=== PATIENT | female | born 1980 ===

== ENCOUNTER 2025-06-12 14:08 | Outpatient (AMB) | payer BC, SELFPAY ==
--- OUTSIDE RECORDS SUMMARY | 2024-09-17 03:30 | XMS_ITS ---
Author Organization [facility] Address [address] [address] Care Team Providers Care Bricklayer Name Role Phone SRIKANTH GILMORE Primary Care Provider REASON FOR VISIT CPE Medications Medication SIG (Take, Route, Frequency, Duration) Notes Start Date End Date Status Famotidine 20 MG 1 tablet Orally Twic e a day Active Vitamin D 25 MCG (1000 UT) 1 tablet and 5,000 unit Orally Once a day Active Vitamin A Active traZODone HCl 50 MG 1 tablet at bedtime as needed Orally Once a day Active Topiramate 25 MG 1 tablet Orally Once a day Active Vitamin E Active Magnesium 200 MG 1 tablet Orally Once a day Active Claritin Active Benzonatate 100 MG 1 capsule as needed Orally Three times a day; Duration: 21 days 05/09/2024 Active Albuterol Sulfate 108 (90 Base) MCG/ACT 1 puff as needed Inhalation every 4 hrs; Duration: 30 days 05/09/2024 Active Amoxicillin 500 MG 1 capsule Orally florentin ry 8 hrs; Duration: 7 days 04/27/2024 Not-Taki ng PARoxetine HCl 10 MG 1 tablet in the mor jhonathan Orally Once a day Active Lactulose 20 GM/30ML 15 mL as needed Ora lly Once a day; Duration: 30 days 09/14/2023 Not-Taking Encounters Encounter Location Date Provider Diagnosis [facility] [address] [address] 09/17/2024 SRIKANTH GILMORE Plan Of Treatment Next Appt Details Provider Name:Sonal padilla, 08/27/2025 08:30:00 AM, [address] [place] [address], [place], [phone], Progress Notes * James VICTORIADOB: [birth year] (45 yo F)Acc No.[id number]:09/17/2024 Progress Notes Patient: James LINARES Provider: Katie GILMORE MD :1980 A ge:44 Y S ex:Female Date:09/17/2024 Address:[address] [place], [place] [id number] Subjective: * Chief Complaints: * 1 . CPE. * Medical History: * Medications: T aking Claritin , Taking Magnesium 200 MG Tablet 1 tablet Orally Once a day , Taking Vitamin E , Taking Vitamin A , Taking Vitamin D 25 MCG (1000 UT) Tablet 1 tablet and 5,000 unit Orally Once a day , Taking Famotidine 20 MG Tablet 1 tablet Orally Twice a day , Taking Topiramate 25 MG Tablet 1 tablet Orally Once a day , Taking traZODone HCl 50 MG Tablet 1 tablet at bedtime as needed Orally Once a day , Taking PARoxetine HCl 10 MG Tablet 1 tablet in the morning Orally Once a day , Taking Benzonatate 100 MG Capsule 1 capsule as needed Orally Three times a day , Taking Albuterol Sulfate 108 (90 Base) MCG/ACT Aerosol Powder Breath Activated 1 puff as needed Inhalation every 4 hrs , Not-Taking Amoxicillin 500 MG Capsule 1 capsule Orally every 8 hrs , Not-Taking Lactulose 20 GM/30ML Solution 15 mL as needed Orally Once a day Objective: * Vitals: Assessment: Plan: * Treatment: * Procedure Codes: N OSHO NO SHOW FEE * Preventive Medicine: C OVID (2) 2020, (1) 2021 FLU NO PPV23 06/2019 TDAP 01/2014 BMD COLONSCOPY EYE EXAM HOG KILLER MAMMOGRAM. * Images: * Electronic signature of JINA GILMORE MD on 06/12/2025 at 09:39 AM EST Sign off status: Pending * Provider: Katie GILMORE MD Date: 0 09/17/2024 Generated for Danyel nj/Rajesh/Brookeitting on: 1 08/13/2024 09:39 AM EST
--- NOTE | 2025-06-12 14:31 | A.OFFVIS_ITS ---
Intake Visit Reasons: 6 months Allergies No Known Allergies Allergy (Verified 06/12/25 14:31) Medication List - Last Reconciled 06/12/25 by Skye Moore CNP ezetimibe 10 mg PO DAILY hydroxyzine HCl 25 mg PO Q8H PRN paroxetine HCl 10 mg PO DAILY 90 days sumatriptan succinate take 1 tab at onset of headache; if no relief may repeat 1 tab after at least 2 hrs; max = 2 tabs/24 hr PO topiramate 25 mg PO BEDTIME 90 days HPI Comments Details: 45-year-old RH woman with anxiety, insomnia, and migraine. She ran out of topiramate for about 2 weeks, and restarted medication about 1 week ago. She noticed headaches were better without the medication, and have increased since restarting it. She possibly had one headache in the two week period without the medication. Since restarting topiramate, she has had 3 headaches. Pain could be all over head, sometimes it was to the front of head, but other times it could be to the back or either side of head, throbbing-type, with photophobia and some sonophobia to lesser extent. No nausea or vomiting. She had headache that started last night and continued to today. She was sitting at home with the shades closed. She took Excedrin, but medication did not help. She forgot about sumatriptan. Sleep was up and down, some nights better than oth ers. She stopped trazodone as she did not think medication was helping. Mood was anxious. 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 [facility] Medical History (Updated 06/12/25 @ 14:34 by Skye Moore CNP) Depression Hyperlipidemia Anxiety Insomnia Migraine Review of Systems Const Denies chills, Denies daytime sleepiness, Reports difficulty sleeping, Denies fatigue, Denies fever(s), Denies frequent falls, Reports headache(s), Denies increased appetite, Denies poor appetite, Denies snoring, Denies weakness, Denies weight gain and Denies weight loss Eyes Denies loss of vision ENT Denies vertigo, Denies dizziness and Reports headache(s) Card Denies chest pain at rest, Denies chest pain with activity, Denies syncope, Denies leg edema and Denies palpitations Resp Denies snoring GI Denies constipation, Denies heartburn, Denies diarrhea and Denies nausea Denies urinary frequency, Denies urinary incontinence and Denies urinary urgency Musc Denies abnormal gait, Denies numbness and Denies tingling Skin/Breast Denies dry skin and Denies rash Neuro Denies abnormal gait, Denies vertigo, Denies dizziness, Denies syncope, Denies frequent falls, Reports headache(s), Denies lack of coordination, Denies loss of vision, Denies memory loss, Denies numbness, Denies restless legs, Denies seizure-like activity, Denies tingling, Denies paresthesias, Denies tremor(s) and Denies weakness Psych Reports anxiety, Denies depression, Denies auditory hallucinations, Denies memory loss, Denies visual hallucinations and Denies suicidal ideation Endo Denies fatigue and Denies palpitations Physical Exam Const Other: Unable to do due to televisit. Telehealth Telehealth Telehealth Platform: Telephone Location of provider rendering services: practice address Location of patient: address on file Patient Identification confirmed using: Name, : Yes Telehealth method: voice only Patient verbally consented to treatment: Yes Patient verbally consented to billing insurance company: Yes Assessment & Plan Assessment & Plan (1) Migraine without aura: Code(s): G43.009 - Migraine without aura, not intractable, without status migrainosus Category: Medical Qualifiers: Status migrainosus presence: without status migrainosus Intractability: not intractable Qualified Code(s): G43.009 - Migraine without aura, not intractable, without status migrainosus Plan: Stop topiramate. Continue sumatriptan 50mg 1 tablet as needed for migraine. May take with 1 Aleve or Excedrin and cup of coffee or tea. Follow up in 4 weeks or sooner as needed. (2) Anxiety: Code(s): F41.9 - Anxiety disorder, unspecified Category: Medical Plan: Continue paroxetine 10mg 1 tablet daily. (3) Insomnia: Code(s): G47.00 - Insomnia, unspecified Category: Medical Qualifiers: Insomnia type: unspecified Qualified Code(s): G47.00 - Insomnia, unspecified Plan: Trazodone 50mg did not help with sleep and she stopped medication. Plan Meds tried for CHANEY: topiramate Meds tried for sleep: trazodone 50mg Medications: Discontinued topiramate Discontinued Reason: Doctor's Order 25 mg PO BEDTIME 90 days 90 tabs 1RF Coding Level of Care Code Tele Est Pt Level 4 (16949) Diagnoses Migraine without aura and without status migrainosus, not intractable G43.009 Status migrainosus presence: without status migrainosus Intractability: not intractable Anxiety F41.9 Insomnia, unspecified type G47.00 Insomnia type: unspecified
--- OUTSIDE RECORDS SUMMARY | 2025-06-12 18:54 | XMS_ITS | Clinical Summary ---
Author Organization [facility] [place] [id number] Care Team Providers Care Product Marketing Specialist Name Role Phone Nayely Lopez MD Primary Care Provider [phone] Allergies Active Allergy Reactions Criticality Noted Date Comments Dog Dander 08/25/2022 House Dust 07/17/2020 Latex Rash Low 02/25/2017 Medications famotidine (PEPCID) tablet Take 20 mg by mouth. 4 Active traZODone (DESYREL) 50 mg tablet Take 50 mg by mouth nightly. 2 Active topiramate (TOPAMAX) 25 mg tablet Take 25 mg by mouth in the morning. 2 Active PARoxetine (PAXIL) 10 mg tablet Take 10 mg by mouth in the morning. 4 Active loratadine (Claritin) 5 mg/5 mL syrup Active vitamin E 1,000 unit/112 gram cream Active vitamin A-ergocalcifero l, D2, 1,250-135 unit capsule Active magnesium oxide 200 mg magnesium tablet,chewable in the morning. Active ascorbic acid, vitamin C, (ascorbic acid) 250 mg tablet,chewable Take by mouth. Active UNABLE TO FIND Sea [place] Activ e terconazole (TERAZOL 7) 0.4 % vaginal cream 1 applicator-ful l at bedtime x 2 weeks then 1x/week for 6 months 45 g 7 4 Active miSOPROStoL (CYTOTEC) 200 mcg tablet 3 tablets orally the night before the procedure 3 tablet 5 Active Active Problems Problem Noted Date Diagnosed Date Dysuria 12/12/2024 Pelvic pain in female 10/23/2024 Endometriosis of peritoneum 04/11/2024 Encounters Date Type Department Care Team Description 04/19/2025 8:13 AM EDT - 04/19/2025 11:59 PM EDT Hospital Encounter [facility] Department of Ultrasound Imaging [address] [place] [address] Ricardo Henson MD Pelvic pain in female Discharge Disposition: Home or Self Care 03/29/2025 1:45 PM EDT Office Visit [facility] Department of Obstetrics and Gynecology [address] [place] [address] Ricardo Henson MD Pelvic pain in female (Primary Dx) from Last 3 Months Family History Medical History Relation Comments Diabetes Father Diabetes Father's Brother 1 Heart failure Father's Brother 2 Breast cancer Father's Sister 1 Cancer Father's Sister 1 breast cancer Breast cancer Father's Sister 2 Alcohol abuse Mother no other history known Breast cancer Other Alzheimer's disease Paternal Grandfather Coronary artery disease Paternal Grandfather Cervical cancer Paternal Grandmother Diabetes Paternal Grandmother Relation Status Comments Father Father's Brother 1 Alive Father's Brother 2 Alive Father's Sister 1 Alive Father's Sister 2 Alive Mother Other Paternal Grandfather Paternal Grandmother Social History Tobacco Use Types Packs/Day Years Used Date Smoking Tobacco: Never Smokeless Tobacco: Never Alcohol Use Standard Drinks/Week Comments Not Currently 2 (1 standard drink = 0.6 oz pur e alcohol) Comments No Sex and Gender Information Value Date Recorded Sex Assigned at Not on file Legal Sex Female 4:00 PM EDT Gender Identity Not on file Sexual Orientation Straight 04/11/2024 8: 08 AM EDT Last Filed Vital Signs Vital Sign Reading Time Taken Comments Blood Pressure 114/79 03/29/2025 2:16 PM EDT Pulse 78 03/29/2025 2:16 PM EDT Temperature - - Respiratory Rate - - Oxygen Saturation - - Inhaled Oxygen Concentration - - Weight 84.3 kg (185 lb 12.8 oz) 03/29/2025 2:16 PM EDT Height 149.9 cm (4' 11 ) 02/15/2025 9: 31 AM EDT Body Mass Index 37.53 02/15/2025 9:31 AM EDT Plan of Treatment Upcoming Encounters Date Type Department Care Team (Late st Contact Info) Description 07/11/2025 1:30 PM EST Office Visit [facility] Gyne[facility] [address] [place] [address] Ricardo Henson MD [address] [place], [place] [address] [phone] 09/06/2025 11:00 AM EDT Consult [facility] [address] [place] [address] Ricardo Henson MD [address] [place], [place] [address] [address] 09/19/2025 7:30 AM EDT Hospital Encounter [facility] Operating Room Services [address] [place] [address] Ricardo Henson MD [address] [place], [place] [address] [phone] 09/19/2025 7:30 AM EDT - 09/19/2025 1:00 PM EDT Surgery [facility] Operating Room Services [address] [place] [address] Ricardo Henson MD [address] [place], [place] [address] [address] HYSTERECTOMY, TOTAL, ROBOT-ASSISTED, LAPAROSCOPIC, WITH SALPINGECTOMY, OOPHORECTOMY, OR SALPINGO-OOPHORECTO MY [[id number] (CPT )] 10/03/2025 10:45 AM EDT Follow-Up [facility]s [facility]ne[facility] [address] [place] [address] Ricardo Henson MD [address] [place], [place] [address] [phone] 11/14/2025 10:45 AM EDT Follow-Up [facility] Department of Obstetrics and Gynecology [address] [place] [address] Ricardo Henson MD [address] [facility] [phone] Scheduled Procedures Name Priority Associated Diagnoses Date/Ti me HYSTERECTOMY, TOTAL, ROBOT-ASSISTED, LAPAROSCOPIC, WITH SALPINGECTOMY, OOPHORECTOMY, OR SALPINGO-OOPHORECTOMY Endometriosis of peritoneum Pelvic pain in female 09/19/2025 7:30 AM EDT Health Maintenance Due Date Last Done Comments Breast Cancer Screening 1978 CT Colonography 1978 FIT-DNA (Cologuard) 1980 FIT 1980 FOBT 1980 Flex Sigmoidoscopy - 5y 1980 HIV Screening 1980 Hepatitis C Screening 1996 HPV/Cotest 2008 Pneumococcal Vaccine: At-Risk and Pediatric Patients (0 to 49 Years) (2 of 2 - PCV) 07/03/2020 07/03/2019 Cervical Cancer Screening 06/22/2022 Pap Smear 06/22/2022 06/22/2019 COVID-19 Vaccine (4 - season) 2025 07/20/2021, 10/24/2020, 09/26/2020 Influenza Vaccine (#1) 2025 03/20/2009 Zoster Vaccines (1 of 2) 2028 DTaP,Tdap,and Td Vaccines (3 - Td or Tdap) 10/02/2034 10/02/2024, 01/31/2014, 09/24/2005, Additional history exists Colonoscopy 03/08/2035 03/08/2025 Colorectal Cancer Screening 03/08/2035 MMR Vaccines Aged Out 01/31/2014, 01/01/2014 No lo nger eligible based on patient's age to complete this topic Hepatitis B Vaccines Completed 08/14/2014, 04/10/2014, 02/13/2014 Hepatitis A Vaccines Completed 09/12/2017, 03/20/2009, 04/11/2007, Additional history exists HPV Vaccines Aged Out No longer eligi ble based on patient's age to complete this topic Meningococcal Vaccine Aged Out No tommy carlos eligible based on patient's age to complete this topic Procedures Procedure Name Priority Date/Time Associated Diagnosis Comments US PELVIS W TRANSVAGINAL W DOPPLER Routine 04/19/2025 8:49 AM EDT Pelvic pain in female BASIC METABOLIC PANEL Routine 03/29/2025 2:50 PM EDT Pelvic pain in female IRON, TIBC AND FERRITIN PANEL Routine 03/29/2025 2:50 PM EDT Pelvic pain in female COMPLETE BLOOD COUNT (CBC) Routine 03/29/2025 2:50 PM EDT Pelvic pain in female from Last 3 Months Results * US pelvis w transvaginal w doppler (04/19/2025 8:49 AM EDT) Anatomical Region Laterality Modality Body, Pelvis Ultrasound 04/22/2025 8:37 AM EDT Impressions 04/22/2025 8:52 AM EDT Neither ovary was visualized. No adnexal abnormality was noted. Heterogeneous uterus. There is a 9 mm hypoechoic cervical mass that is favored to represent a nabothian cyst with internal echoes. Reminder to Patients and Legally Authorized Representatives: Language in this report is designed for medical communication with other treating physicians and clinical practitioners. Please speak with your provider(s) about any questions or concerns related to the content of this report. 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 COMPARISON: Ultrasound 12/12/2024, MRI 09/11/2024. FINDINGS: The uterus measures approximately 8.3 cm longitudinally, 4.6 cm AP, and 5.5 cm transversely on the transvaginal portion the examination. There is a 9 mm hypoechoic mass within the superior aspect of the cervix. There is increased through transmission and there is no internal vascularity with color flow Doppler. This is favored to represent a nabothian cyst with internal echoes. The uterus is of heterogeneous echotexture. The endometrial echocomplex is difficult to visualize because of diffuse uterine heterogeneity. The endometrial echocomplex appears to measure approximately 5 mm. Neither ovary was visualized. No adnexal abnormality was noted. There is no free fluid. 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 COMPARISON: Ultrasound 12/12/2024, MRI 09/11/2024. FINDINGS: The uterus measures approximately 8.3 cm longitudinally, 4.6 cm AP, and5.5 cm transversely on the transvaginal portion the examination. There sridhar 9 mm hypoechoic mass within the superior aspect of the cervix. There isincreased through transmission and there is no internal vascularity withcolor flow Doppler. This is favored to represent a nabothian cyst withinternal echoes. The uterus is of heterogeneous echotexture. The endometrial echocomplex is difficult to visualize because of diffuseuterine heterogeneity. The endometrial echocomplex appears to measureapproximately 5 mm. Neither ovary was visualized. No adnexal abnormality was noted. There is no free fluid. IMPRESSION: Neither ovary was visualized. No adnexal abnormality was noted. Heterogeneous uterus. There is a 9 mm hypoechoic cervical mass that is favored to represent anabothian cyst with internal echoes. Reminder to Patients and Legally Authorized Representatives: Language in this report is designed for medical communication with othertreating physicians and clinical practitioners. Please speak with your provider(s) about any questions or concernsrelated to the content of this report. Etienne Bee MD AF^0 us Ricardo Henson MD IM US PROCEDURES Final Result * Iron, TIBC, and Ferritin panel (03/29/2025 2:50 PM EDT) Pathologist [facility] [place] Iron 95 28 - 170 ug/dL 03/29/2025 4:55 PM EDT [facility] Iron Binding Capacity 333 260 - 490 ug/dL 03/29/2025 4:55 PM EDT [facility] % Saturation 29 % 03/29/2025 4:55 PM EDT [facility] Ferritin 225 6 - 307 ng/mL 03/29/2025 4:55 PM EDT [facility] Blood Venous blood specimen / Unknown Venipuncture / Unknown 03/29/2025 2:50 PM EDT 03/29/2025 2:50 PM EDT us Ricardo Henson MD LAB BLOOD ORDERABLES Final Res ult Performing Organization Address City/State/[facility] Co de Phone Number [facility] [address] [place] [address], * (ABNORMAL) Complete blood count (CBC) (03/29/2025 2:50 PM EDT) Pathologist [facility] [place] White Cell Count 12.7(H) 3.6 - 11.0 10*3/uL 03/29/2025 4:23 PM EDT [facility] Red Cell Count 5.04 3.80 - 5.20 10*6/ L 03/29/2025 4:23 PM EDT [facility] Hemoglobin 14.1 12.0 - 16.0 g/dL 03/29/2025 4:23 PM EDT [facility] Hematocrit 43.9 35.0 - 47.0 % 03/29/2025 4:23 PM EDT [facility] MCV 87.1 80.0 - 100.0 fL 03/29/2025 4:23 PM EDT [facility] MCH 28.0 26.0 - 34.0 pg 03/29/2025 4:23 PM EDT [facility] MCHC 32.1 32.0 - 36.0 g/dL 03/29/2025 4:23 PM EDT [facility] RBC Distribution Width 12.6 11.6 - 14.8 % 03/29/2025 4:23 PM EDT [facility] Platelet count 379 150 - 440 10*3/uL 03/29/2025 4:23 PM EDT [facility] nRBC 0.0 0.0 - 0.0 % 03/29/2025 4:23 PM EDT [facility] MPV 11.0 9.4 - 12.4 fL 03/29/2025 4:23 PM EDT [facility] Blood Venous blood specimen / Unknown Venipuncture / Unknown 03/29/2025 2:50 PM EDT 03/29/2025 2:50 PM EDT us Ricardo Henson MD LAB BLOOD ORDERABLES Final Res ult [facility] [address] [place] [address], * Basic metabolic panel (03/29/2025 2:50 PM EDT) Sodium 138 137 - 144 mmol/L 03/29/2025 4:41 PM EDT [facility] Potassium 3.8 3.6 - 5.1 mmol/L 03/29/2025 4:41 PM EDT [facility] Chloride 103 100 - 111 mmol/L 03/29/2025 4:41 PM EDT [facility] CO2 25 23 - 32 mmol/L 03/29/2025 4:41 PM EDT [facility] Anion gap 10 3 - 11 mmol/L 03/29/2025 4:41 PM EDT [facility] BUN 10 8 - 24 mg/dL 03/29/2025 4:41 PM EDT [facility] Creatinine 0.70 0.60 - 1.20 mg/dL 03/29/2025 4:41 PM EDT [facility] Glucose 90 70 - 200 mg/dL 03/29/2025 4:41 PM EDT [facility] Comment: Normal fasting glucose 75-99 mg/dL Impaired fasting glucose 100 - 125 mg/dL Fasting glucose >125 mg/dL - provisional diagnosis of diabetes mellitus Random glucose >= 200 mg/dl is considered diagnostic for diabetes ADA Guidelines: Classification and Diagnosis of Diabetes: Standards of Medical Care in Diabetes - 202, Diabetes Care 2020; S15-S33. Calcium 9.2 8.4 - 10.2 mg/dL 03/29/2025 4:41 PM EDT [facility] eGFR 108 >60 mL/min/1. 73m*2 03/29/2025 4:41 PM EDT [facility] Comment: Calculation based on the Chronic Kidney Disease Epidemiology Collaboration (CKD-EPI) equation refit without adjustment for race. Chronic Kidney Disease less than 60 ml/min/1.73 m2 Kidney Failure less than 15 ml/min/1.73 m2 Age (Years) Average GFR 20 - 29 116 ml/min/1.73 m2 30 - 39 107 ml/min/1.73 m2 40 - 49 99 ml/min/1.73 m2 50 - 59 93 ml/min/1.73 m2 60 - 69 85 ml/min/1.73 m2 70 + 75 ml/min/1.73 m2 Pursuant to [place] Public Act 06-120(1)(b)(1). The 2020 CKD-EPI calculation used to estimate eGFR has only been validated for patients 18 years or older. Blood Venous blood specimen / Unknown Venipuncture / Unknown 03/29/2025 2:50 PM EDT 03/29/2025 2:50 PM EDT us Ricardo Henson MD LAB BLOOD ORDERABLES Final Res ult [facility] [address] [place] [address], [place] [phone] from Last 3 Months Insurance ANTHEM - OUT OF STATE Care Teams Product Marketing Specialist Relationship Specialty Start Date End Date Nayely Lopez MD [address] [place] [id number] PCP - General Internal Medicine 04/04/24
--- OUTSIDE RECORDS SUMMARY | 2025-06-12 18:54 | XMS_ITS | Encounter Summary ---
Author Organization [employer] Address [address] [place] [address] Care Team Providers Care Bank Courier Name Role Phone Nayely Lopez MD Primary Care Provider [phone] Encounter Details Date Type Department Care Team ([facility] st Contact Info) Description 04/21/2025 Results Follow-Up Gastroenterology - [place] [address] [facility] [address] [facility] [address] [place] [id number] Arabella Green MD [address] [place] [address] Social History Tobacco Use Types Packs/Day Years Used Date Smoking Tobacco: Never Smokeless Tobacco: Never Alcohol Use Standard Drinks/Week Comments Not Currently 0 (1 standard drink = 0.6 oz pur e alcohol) Interpersonal Safety Answer Date Record ed Physical Abuse Unrecognized value 03/08/2025 Verbal Abuse Unrecognized value 03/08/2025 Comments No Sex and Gender Information Value Date Recorded Sex Assigned at Female 08/20/2024 2:59 PM EST Legal Sex Female 7:34 PM EST Gender Identity Female 08/20/2024 2:59 PM EST Sexual Orientation Straight 08/20/2024 2: 59 PM EST documented as of this encounter Progress Notes * Arabella Green MD - 04/21/2025 6:46 PM EDT The polyp(s) that were removed during your colonoscopy were precancerous, but benign. Fortunately, we removed them and therefore, they will not cause any more problems in the future. Based on the number, the size, and the features of the polyp(s) removed, I recommend a follow-up colonoscopy in 5 years. Before, the five years are due, we will send you a reminder in the mail askingyou to contact our office to have the colonoscopy scheduled. I would like to personally thank you for allowing us to take care of you. Please don't hesitate to call us for any questions or concerns. Regards, Vince Green MD Board Certified Gastroenterology and Internal Medicine Transplant Hepatology [facility] documented in this encounter Plan of Treatment Not on file documented as of this encounter Visit Diagnoses Not on filedocumented in this encounter Care Teams Bank Courier Relationship Specialty Start Date End Date Nayely Lopez MD [address] [place] [phone] PCP - General Internal Medicine 08/23/24 documented as of this encounter
--- OUTSIDE RECORDS SUMMARY | 2025-06-12 18:55 | XMS_ITS | Continuity of Care Document ---
Author Organization [place] Address [address] [address] Care Team Providers Care Cupola Charger Insulation Name Role Phone SRIKANTH GILMORE Primary Care Provider CHRISSIE CLARKE Family Medicine Unavailable Assessment Encounter Date Assessment Date Assessment LastModified by Organization Details LastModified Time 04/22/2025 04/22/2025 Chart prep time: 04/17/25: 8:35-8:40a (5) Face to face time with patient: 12:00-12:59 (59) Documentation time: 2:00-2:05 (5) Total time spent on encounter: 69min E+M based on time. A total of __0__ chronic well controlled medical conditions, a total of __5__ inadequately controlled medical condition were addressed at today s appointment. Long-term risk for these conditions are considered low due to: took into account other medications patient is currently taking. The following IBT was completed during the appointment today which went above and beyond the E/M service provided, _23___ minutes were spent on nutritional counseling. At appt today pt discussed and consented for CCM given the complex medical conditions pt has. Per CMS guidelines, providing consent includes that the patient understands the cost-sharing obligation and that only one practitioner can furnish & be paid for CCM services during a calendar month. [email or web address] Not available 04/22/2025 13:03:32 Plan of Treatment Reminders Order Date Submit Date Provider Last Modified By Organization Details Last Modified Time Details Appointments None recorded. Lab lipid panel, serum 2024 025 [facility], [address], [address], [place], [address], 12:59:03 unlisted lab - cardio iq(R) insulin resistance panel with score 2024 [facility], [address], [address], [place], [address], 12:59:02 thyroid panel, serum 2024 [facility], [address], [address], [place], [address], 12:59:00 CMP, serum or plasma 2024 [facility], [address], [address], [place], [address], 16:08:25 CBC 2024 [facility], [address], [address], [place], [address], 16:08:25 HbA1c (hemoglobin A1c), blood 2024 [facility], [address], [address], [place], [address], 16:08:27 TSH, serum or plasma 2024 [facility], [address], [address], [place], [address], 16:08:26 T3, free, serum or plasma 2024 [facility], [address], [address], [place], [address], 12:59:00 T3, reverse, serum 2024 025 [facility], [address], [address], [place], [address], 16:08:28 uric acid, serum or plasma 2024 025 [facility], [address], [address], [place], [address], 16:08:29 vitamin D, 25-hydroxy, total, serum 2024 [facility], [address], [address], [place], [address], 16:08:28 T4, free, serum 2024 025 [facility], [address], [address], [place], [address], 12:58:59 Referral None recorded. Procedures None recorded. Surgeries None recorded. Imaging None recorded. Medication Orders None recorded. Patient TargetsNo targets recorded. Patient InstructionsNo instructions recorded. Reason for Referral None Reported. Results Created Date Observation Date Name Description Value Unit Range Abnormal Flag Note LastModifiedBy Organization Detail LastModifiedTime 05/06/2005/06/2025 COMP. METAB OLIC PANEL (14) glucose 100 mg/dL 70-99 above high normal Not Available [facility] ([facility]) [address] [place], [address], 05/15/2025 16:08:25 05/06/20 25 05/06/2025 COMP. METAB OLIC PANEL (14) BUN 8 mg/dL 6-24 normal Not Available [facility] ([facility]) [address] [place], [address], 05/15/2025 16:08:25 05/06/20 25 05/06/2025 COMP. METAB OLIC PANEL (14) creatinine 0.64 mg/dL 0.57-1 .00 normal Not Available [facility] ([facility]) [address] [facility] [place], [address], 05/15/2025 16:08:25 05/06/20 25 05/06/2025 COMP. METAB OLIC PANEL (14) eGFR 110 mL/mi n/1.7 3 >59 normal Not Available [facility] ([facility]) [address] [facility] [place], [address], 05/15/2025 16:08:25 05/06/20 25 05/06/2025 COMP. METAB OLIC PANEL (14) BUN/creatini ne ratio 13 9-23 normal Not Available [facility] ([facility]) [address] [facility], [place], [address], 05/15/2025 16:08:25 05/06/20 25 05/06/2025 COMP. METAB OLIC PANEL (14) sodium 135 mmol/ L 134-14 4 normal Not Available [facility] ([facility]) [address] [facility] [place], [address], 05/15/2025 16:08:25 05/06/20 25 05/06/2025 COMP. METAB OLIC PANEL (14) potassium 4.5 mmol/ L 3.5-5. 2 normal Not Available [facility] ([facility]) [address] [facility] [place], [address], 05/15/2025 16:08:25 05/06/20 25 05/06/2025 COMP. METAB OLIC PANEL (14) chloride 100 mmol/ L 96-106 normal Not Available [facility] ([facility]) [address] [facility] [place], [address], 05/15/2025 16:08:25 05/06/20 25 05/06/2025 COMP. METAB OLIC PANEL (14) carbon dioxide, total 27 mmol/ L 20-29 normal Not Available [facility] ([facility]) [address] [place], [address], 05/15/2025 16:08:25 05/06/20 25 05/06/2025 COMP. METAB OLIC PANEL (14) calcium 9.3 mg/dL 8.7-10 .2 normal Not Available [facility] ([facility]) [address] [place], [address], 05/15/2025 16:08:25 05/06/20 25 05/06/2025 COMP. METAB OLIC PANEL (14) protein, total 7.3 g/dL 6.0-8. 5 normal Not Available [facility] ([facility]) [address] [place], [address], 05/15/2025 16:08:25 05/06/20 25 05/06/2025 COMP. METAB OLIC PANEL (14) albumin 4.4 g/dL 3.9-4. 9 normal Not Available [facility] ([facility]) [address] [place], [address], 05/15/2025 16:08:25 05/06/20 25 05/06/2025 COMP. METAB OLIC PANEL (14) globulin, total 2.9 g/dL 1.5-4. 5 Not Available [facility] ([facility]) [address] [facility] [place], [address], 05/15/2025 16:08:25 05/06/20 25 05/06/2025 COMP. METAB OLIC PANEL (14) bilirubin, total 0.3 mg/dL 0.0-1. 2 normal Not Available [facility] ([facility]) [address] [facility] [place], [address], 05/15/2025 16:08:25 05/06/20 25 05/06/2025 COMP. METAB OLIC PANEL (14) alkaline phosphatase 83 IU/L 41-116 normal Not Available [facility] ([facility]) [address] [facility], [place], [address], 05/15/2025 16:08:25 05/06/20 25 05/06/2025 COMP. METAB OLIC PANEL (14) AST (SGOT) 16 IU/L 0-40 normal Not Available [facility] ([facility]) [address] [facility], [place], [address], 05/15/2025 16:08:25 05/06/20 25 05/06/2025 COMP. METAB OLIC PANEL (14) ALT (SGPT) 22 IU/L 0-32 normal Not Available [facility] ([facility]) [address] [facility], [place], [address], 05/15/2025 16:08:25 05/06/20 25 05/07/2025 CBC, PLATE LET, NO DIFFE RENTI AL WBC 8.3 x10e3 /uL 3.4-10 .8 normal Not Available [facility] ([facility]) [address] [place], [address], 05/15/2025 16:08:25 05/06/20 25 05/07/2025 CBC, PLATE LET, NO DIFFE RENTI AL RBC 4.91 x10e6 /uL 3.77-5 .28 normal Not Available [facility] ([facility]) [address] [place], [address], 05/15/2025 16:08:25 05/06/20 25 05/07/2025 CBC, PLATE LET, NO DIFFE RENTI AL hemoglobin 13.6 g/dL 11.1-1 5.9 normal Not Available [facility] ([facility]) [address] [place], [address], 05/15/2025 16:08:25 05/06/20 25 05/07/2025 CBC, PLATE LET, NO DIFFE RENTI AL hematocrit 42.1 % 34.0-4 6.6 normal Not Available [facility] ([facility]) [address] [facility], [place], [address], 05/15/2025 16:08:25 05/06/20 25 05/07/2025 CBC, PLATE LET, NO DIFFE RENTI AL MCV 86 fL 79-97 normal Not Available [facility] ([facility]) [address] [facility], [place], [address], 05/15/2025 16:08:25 05/06/20 25 05/07/2025 CBC, PLATE LET, NO DIFFE RENTI AL MCH 27.7 pg 26.6-3 3.0 normal Not Available [facility] ([facility]) [address] [facility], [place], [address], 05/15/2025 16:08:25 05/06/20 25 05/07/2025 CBC, PLATE LET, NO DIFFE RENTI AL MCHC 32.3 g/dL 31.5-3 5.7 normal Not Available [facility] ([facility]) [address] [facility], [place], [address], 05/15/2025 16:08:25 05/06/20 25 05/07/2025 CBC, PLATE LET, NO DIFFE RENTI AL RDW 12.6 % 11.7-1 5.4 Not Available [facility] ([facility]) [address] [facility], [place], [address], 05/15/2025 16:08:25 05/06/20 25 05/07/2025 CBC, PLATE LET, NO DIFFE RENTI AL platelets 273 x10e3 /uL 150-45 0 normal Not Available [facility] ([facility]) [address] [facility], [place], [address], 05/15/2025 16:08:25 05/06/20 25 05/07/2025 CBC, PLATE LET, NO DIFFE RENTI AL NRBC PATCHER HELPER Not Available [facility] ([facility]) [address] [facility], [place], [address], 05/15/2025 16:08:25 05/06/20 25 05/15/2025 T4F+T 3FREE thyroxine (T-4), serum 4.8 ug/dL Refer ence Range : Adult s: 4.2 - 13.0 Not Available [facility] [address] [place], [address], 05/15/2025 16:08:26 05/06/20 25 05/15/2025 T4F+T 3FREE free T-3 3.2 pg/mL Refer ence Range : >=20y : 2.0 - 4.4 Not Available [facility] [address] [place], [address], 05/15/2025 16:08:26 05/06/20 25 05/15/2025 T4F+T 3FREE triiodothyro nine (T-3), serum 126 NG/dL Refer ence Range : Adult s: 55 - 170 Not Available [facility] [address] [place], [address], 05/15/2025 16:08:26 05/06/20 25 05/15/2025 T4F+T 3FREE free thyroxine 0.97 NG/dL Refer ence Range : >=20y : 0.82 - 1.77 Not Available [facility] [address] [place], [address], 05/15/2025 16:08:26 05/06/20 25 05/07/2025 HEMOG LOBIN A1C hemoglobin A1C 6.0 % 4.8-5. 6 above high normal Predi abete s: 5.7 - 6.4 Diabe eriberto: >6.4 Glyce margarette contr ol for adult s with diabe eriberto: <7.0 Not Available [facility] ([facility]) [address] [facility], [place], [address], 05/15/2025 16:08:27 05/06/20 25 05/11/2025 REVER SE T3, SERUM reverse T3, serum 11.3 NG/dL 9.2-24 .1 normal Not Available [facility] ([facility]) [address] [facility], [place], [address], 05/15/2025 16:08:28 05/06/20 25 05/07/2025 VITAM IN D, 25-HY DROXY vitamin D, 25-hydroxy 34.4 NG/mL 30.0-1 00.0 Vitam in D defic iency has been defin ed by the Insti tute of Medic ine and an Endoc rine Socie ty pract ice guide line as a level of serum 25-OH vitam in D less than 20 ng/mL (1,2) . The Endoc rine Socie ty went on to [facility] er defin e vitam in D insuf ficie ncy as a level betwe en 21 and 29 ng/mL (2). 1. IOM (Inst itute of Medic ine). 2009. Pravin ry refer ence marilee es for calci um and D. Roel mckeon [place]: The Natio nal [facility] Press . 2. Martha alford MF, Jackson dimas [place], Stacy off-F errar i CHANEY, et al. Evalu ation , treat ment, and preve ntion of vitam in D defic iency : an Endoc rine Socie ty clini estelle pract ice guide line. JCEM. 2010; 96(7) :1911 -30. Not Available [facility] ([facility]) [address] [facility], [place], [address], 05/15/2025 16:08:28 05/06/20 25 05/06/2025 URIC ACID uric acid 4.8 mg/dL 2.6-6. 2 normal Thera peuti c targe t for gout patie nts: <6.0 Not Available [facility] ([facility]) [address] [facility], [place], [address], 05/15/2025 16:08:29 Result Notes None recorded. Problems Name Problem SNOMED Code Status Onset Date Resolution Date Notes Provider Name and Address Organization Details Recorded Time Obstructive sleep apnea syndrome 34837571 Active 2024 CHRISSIE CLARKE APRN [address], [place], [address], [place] [employer] [facility] [employer] 5 13:05:57 Obese class II 3932023736268 05 Active 2024 CHRISSIE CLARKE APRN [address], [place], [address], [place] [facility] [employer] 5 13:05:58 Menopause finding 654872239 Active 2024 CHRISSIE CLARKE APRN [address], [place], [address], [place] [employer] 5 13:06:01 Mixed hyperlipide robbie 506709517 Active 2024 CHRISSIE CLARKE APRN [address], [place], [address], [place] [employer] [employer] 5 13:06:03 Generalized anxiety disorder 05871319 Active 2024 CHRISSIE CLARKE APRN [address], [place], [address], [place] [employer] [employer] 5 13:06:05 Prediabetes 893541580 Active 2024 CHRISSIE CLARKE APRN [address], [place], [address], [place] [employer] 5 11:27:37 Problem Notes None recorded. Medical Equipment None Reported. Allergies Allergen ID Allergen Name Allergen Category Reaction Reaction Severity Criticality Documentation Date Start Date Code Code System Note Provider Name and Address Organization Details Recorded Time 40508 Canis lupus familiari s extract environme nt Not available Not available Not available 05/22/20252022 07595 4 RxNorm Not Available [facility] - External Data Service - prod 03:56:29 16779 house dust allergeni c extract environme nt,medica tion Not available Not available Not available 05/22/20252020 94548 9 RxNorm Not Available crystal - External Data Service - prod 03:56:29 50010 latex environme nt,medica tion rash Not available low 05/22/20252016 48309 91 RxNorm Not Available [facility] External Data Service - prod 03:56:29 Medications Name Sig Start Date Stop Date Status Note LastModified by Organization Details LastModified Time paroxetine 10 mg tablet Take 1 tablet every day by oral route. active Not Available Not Available No t Available topiramate 25 mg tablet Take 1 tablet every day by oral route. active Not Available Not Available No t Available hydroxyzine HCl 25 mg tablet Take 1 tablet every day by oral route. active Not Available Not Available No t Available ezetimibe 10 mg tablet Take 1 tablet every day by oral route. active Not Available Not Available No t Available albuterol sulfate (bulk) as needed active Not Available Not Available No t Available Vitals Date Recorded Body height Heart rate Oxygen saturation Body mass index (BMI) Body weight Systolic And Diastolic Provider Name and Address Organization Details Last Updated DateTime 149.86 cm 91 /min 97 % 37.1 kg/m2 67950.5 5 g 110/62 mm[Hg] Cari Moscoso [place] [employer] [employer] [employer] 12:14:02 Social History Question Answer Notes LastModified by Organizat ion Details LastModified Time Tobacco Smoking Status Never Smoker CHRISSIE CLARKE, SNOW[employer]ARDER [address], [place], [address], [place] [employer] [employer] 04/22/2025 12:28:59 What Type Of Diet Are You Following? REGULAR Information not available 04/22/2025 Have There Been Any Changes To Your Family Or Social Situation? Yes Information not available 04/22/2025 What Is Your Relationship Status? Information not available 04/22/2025 Do You Have Any Dietary Restrictions? Yes Limits Bread-only Eats Potato Bread. Eating Bread Causes Heartburn Information not available 04/22/2025 Do You Have Any Future Plans To Get ? No, I Don't Want To Become Information not available 04/22/2025 Sex: Unknown Functional Status Question Answer Note LastModified by Organizat ion Details LastModified Time How many times per week do you consume alcohol? Less than 1 time per week Information not available 04/22/2025 What is your level of alcohol consumption? Occasional Information not available 04/22/2025 Mental Status Question Answer Note LastModified by Organization D etails LastModified Time Do you feel stressed (tense, restless, nervous, or anxious, or unable to sleep at night)? [id number] Information not available 04/22/2025 Family History Relationship Description Onset Age of this Age Resolved Age Notes LastModified by Organization Details LastModified Time Paternal Uncle Heart disease [email or web address] Not available 2024 12:28:31 Medical History Condition Response Anxiety Disorder Y Diverticulitis/Diverticulosis Y High Cholesterol Y Gynecological HistoryNo gynecological history recorded. Obstetrics History GPAL:G 0 P 0 0 0 0 Past Encounters Encounter ID Performer Location Encounter Start Date Encounter Closed Date Diagnosis/Indication Diagnosis SNOMED-CT Code Diagnosis ICD10 Code Diagnosis IMO Codes Diagnosis Note [id number] Masood Encinas, DO [facility] on [address] [place] [address], [place] [address] 04/22/2025 11:35:15 04/22/2025 13:05:03 Diet education 48162395 Z71.3 415901 Currently following a unstructur ed meal plan, lack of balanced meals, receptive to making dietary changes. Readiness to change: preparatio n stage. Barriers to change: emotional eating, stress eating, eating on the run, cravings Advise: New Start and basic 1 week plan given as a guide which includes balanced meals with protein, complex carbs and fat. Focus on reduction in refined carb intake and increase water for adequate hydration. Agree: Client agrees to recommenda tions. Will document intake in a 7 day food record and bring to next f/u. Patient understand s the plan of lifestyle and nutritiona l changes as outlined and is aware that this is only a guide. However, implementi ng these changes may help in resulting in a foundation for primary prevention of chronic comorbidit ies.Treatm ent goals for the upcoming month1. Understand ing macro's2. Learn how to read a nutrition label3. Mindfully balance meals4. Record foods for self accountabi lity Assist: Will pre-plan and pack meals and snacks and use the food diary for self-accou ntability. Explained NIESHA and encouraged her to record her reasons for wanting to lose weight. Time spent face to face nutritiona l counseling : 23 min Obstructiv e sleep apnea syndrome 25706821 G47.33 935147 ANDIE-untrea kait Plan:- Reinforced importance of nightly use. Advised to get reconnecte d with sleep center to have her equipment evaluated- Discussed necessity of good sleep hygeine; quality sleep supports metabolism , mood, and weight loss success- Emphasized that even modest weight loss can improve ANDIE severity and metabolic health Mixed hyperlipidemia 267 300176 E78.2 51779 No recent lab values on fileezetim roland 10mg Plan:- Will obtain updated lipid panel to assess current status- Discussed dietary modificati ons, exercise, and weight control as foundation for treatment of dyslipidem ia- Monitor and trend lipid panel q 3 months after initiating lifestyle changes or med Educ: Discussed role of hyperlipid emia in CV risk and the importance of lifestyle modificati ons. Obese class II 543091953 1 80804 E66.812 Z68.37 Z71.3 [id number] New ProblemIni tial Weight: 183.9lbsIn itial BMI: 37.1Goal Weight: 140Body Comp: FMP 86.9, SMM 44.2 Plan:- Discussed the health risks associated with excess body weight, such as cardiovasc ular disease and type II diabetes.- Counseled on lifestyle interventi ons for sustainabl e weight loss including increasing protein, reducing refined carbohydra eriberto, and daily physical activity- Discussed benefits of food journaling - Addressed sleep hygeine and stress management - Reviewed labs from 03/29/25: glucose 90, creatinine WNL. Plan to order baseline metabolic panel and labs Meds: Plan to discuss pharmacolo gical options pending lab results Referral: N/A Follow Up: In 4 weeks Menopause finding 592995 006 N95.1 0870545 Plan:- Reviewed age-relate d hormonal changes, including reduction of estrogen, testostero ne and progestero ne and how these changes are often associated with underlying insulin resistance and weight gain- Counseled on importance of weight bearing exercises to maintain bone density, as well as the importance of vitamin D and calcium for bone health- Will continue to monitor her mood, sleep, and symptoms during follow ups Generalize d anxiety disorder 11948983 F41.1 133569 Paroxetine 10mg Treatment plan:- Patient reports stability in mood with current psychiatri c regimen- Reinforced medication adherence to maintain mood stability, which is necessary for consistenc y in lifestyle changes- Recommend balanced and consistent meals throughout the day to support mood stability and blood sugar control- Reinforced that physical activity serves as a mood stabilizer , improving sleep and reducing anxiety- Role of therapist and medication s discussed Goals Section Goal Description Progress Status Start Date LastModified by Organization Details LastModified Time Weight Loss Goal Weight: 56323: Weight status: No weigh in. Patient showed up late to appointment.: Weight status: Current weight: 185.9 Difference: +2 Total: +2 BMI: 37.5 worsening active 2024 Kenny Fairbanks Information not available 05/22/2025 15:46:13 Patient demonstr ates behavior s to improve nutritio nal status will demonstrate improved behaviors r/t /26/ 25: Behaviors: Cravings have been very intense intense lately especially around menstrual cycle. Can't have a lot of bread, can only handle spinach wraps due to diverticulitis and acid reflux. 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 [employer]. - Daily (Weekend) Schedule: Often catching up on work and sleep. Will sleep until 10AM. Usually not productive on the weekends. - Cooking Habits: Does most of the cooking, doesn't enjoy, doesn't know what to cook. - Eating out: Once a week. -Exercise: Not a lot of energy. -Eating Style: doesn't do a lot of bread due to acid reflux. Cravings for chocolate. -Past Barriers: can't tolerate a lot of veggies at once, time is an issue. Cant eat anything fried too. worsening active 2024 Kenny Fairbanks Information not available 05/22/2025 15:46:55 Health Concerns Section Related Observation LastModified by Organization Detai ls LastModified Time None Recorded Concern Status LastModified by Organization Details LastModified Time Mixed hyperlipidemia Active Chrissie Clarke Not Availabl e 04/22/2025 17:07:27 Obese class II Active Chrissie Clarke Not Available 03/28 17:07:27 Payers Encounter Date Sequence Insurance Name Policy Number Policy Adamson Covered Member ID Adamson Member ID Guarantor Name 04/22/2025 1 [place] [facility] [id number] Y Juan Manuel [employer] [id number] James Morenoendez Notes Date Note Type Note Provider Name and Address Organization Details Recorded Time 04/22/20 25 text/htm l Overweight/Obese PATCHER HELPER-PTReported by PatientHPIFor associated signs & symptoms, patient reportsbrain fogandfatigue. For severity, patient reportshighest adult weight: 180 lbs when:,lowest adult weight: 115 lbs when:,personal weight loss goals: why: (140), andclass ii obesity (bmi 35-39.9). For onset/timing, patient reportsmenopauseandmedication use. For context (behavior), patient reportsovereating to the point of discomfort,feeling guilty after eating,emotional eating,no meal planning,skipping meals,frequently eating on the run,relying on convenient items, andfamily food preferences more important than own. For context: past challenges with diet attempts, patient reportslack of motivation/ commitment,difficulty with grocery shopping,cravings,issues with portion control,unsure what to eat,family schedule/ responsibilities/ lack of time, andfinancial challenges. For previous weight loss attempts, patient reportsatkins. For physical activity, patient reportsreported frequency of moderate level of physical activity per week: sedentaryanddaily activity: sedentary(exercises in morning-stretching). For nutrition: patient's perception, (b-oatmeal w/almonds and pecans and small amount of sugar or boiled eggs or fried egg or scrambled or bagel or cinnamon cookies (q 2 weeks)g-hssafaltun-gjiwq potatoe with olive oil, garlic, onions, pepper, corn on the cob, air fried wings with bbq saucehydration-64 ounces bottlesnacks-tends to snack between lunch and dinner. gravitates towards [employer] as [facility] health therapist). For modifying factors, (sleep-states cpap leaking water. tried to have fixed but states can't afford to keep using. trouble falling asleep and maintaining sleepstress-elevated). 44 year old female here as new patient. Referred by Dr. Henson 115 post . After having her son-was her heaviest at 172. Perimenopausal Past Medical HistoryHLD-taking ezetimibePerimenopause-no periods 2/2 ablation. + sleep disturbances, + anxiety. has endometriosisRight leg pain-states terminal make up operator problemDiverticulosisAnxiety-par oxetine. lost daughter in 2017 CHRISSIE CLARKE, SNOW[employer]ARDER [address], [place], [address], [place] - POUNDS, MEDICAL WEIGHT LOSS TRANSFO 04/22/2025 13:06:10 OBGyn Episode No OBEpisode recorded.
--- OUTSIDE RECORDS SUMMARY | 2025-06-12 18:55 | XMS_ITS | Continuity of Care Document ---
Author Organization [email or web address] Address [address] [place] [phone] Care Team Providers Care Research Chemical Engineer Name Role Phone SRIKANTH GILMORE Primary Care Provider [phone] CHRISSIE CLARKE Family Medicine Unavailable Assessment No assessment recorded. Plan of Treatment Reminders Order Date Submit Date Provider Last Modified By Organization Details Last Modified Time Details Appointments None record ed. Lab None record ed. Referral None record ed. Procedures None record ed. Surgeries None record ed. Imaging None record ed. Medication Orders None record ed. Patient Targets Encounter Date Encounter Id Patient Goals Patient Target Last Modified By Organization Details Last Modified Time 05/22/2025 [id number] Start Date: 04/22/2025 Initial Weight:183. 9 Initial BMI:37.1 [email or web address] Not available 05/13/2025 17:56:45 Patient InstructionsNo instructions recorded. Reason for Referral None Reported. Results Created Date Observation Date Name Description Value Unit Range Abnormal Flag Note LastModifiedBy Organization Detail LastModifiedTime 05/06/2005/07/2025 NMR LIPOP ROFIL E+LIP IDS+I R+GPH LDL-P 2276 nmol/ L <1000 above high normal Low < 1000 Moder ate 1000 - 1299 Borde rline -High 1300 - 1599 High 1600 - 2000 Very High > 2000 Not Available [facility] ([facility]) [address] [facility], [place], [address], 05/15/2025 16:08:24 05/06/20 25 05/07/2025 NMR LIPOP ROFIL E+LIP IDS+I R+GPH LDL-C (nih calc) 145 mg/dL 0-99 above high normal Optim al < 100 Above optim al 100 - 129 Borde rline 130 - 159 High 160 - 189 Very high > 189 Not Available [facility] ([facility]) [address] [place], [address], 05/15/2025 16:08:24 05/06/20 25 05/07/2025 NMR LIPOP ROFIL E+LIP IDS+I R+GPH HDL-C 48 mg/dL >39 Not Available [facility] ([facility]) [address] [place], [address], 05/15/2025 16:08:24 05/06/20 25 05/07/2025 NMR LIPOP ROFIL E+LIP IDS+I R+GPH triglyceride s 216 mg/dL 0-149 above high normal Not Available [facility] ([facility]) [address] [place], [address], 05/15/2025 16:08:24 05/06/20 25 05/07/2025 NMR LIPOP ROFIL E+LIP IDS+I R+GPH cholesterol, total 232 mg/dL 100-19 9 above high normal Not Available [facility] ([facility]) [address] [place], [address], 05/15/2025 16:08:24 05/06/20 25 05/07/2025 NMR LIPOP ROFIL E+LIP IDS+I R+GPH HDL-P (total) 34.1 umol/ L >=30.5 Not Available [facility] ([facility]) [address] [place], [address], 05/15/2025 16:08:24 05/06/20 25 05/07/2025 NMR LIPOP ROFIL E+LIP IDS+I R+GPH small LDL-P 1450 nmol/ L <=527 above high normal Not Available [facility] ([facility]) [address] [place], [address], 05/15/2025 16:08:24 05/06/20 25 05/07/2025 NMR LIPOP ROFIL E+LIP IDS+I R+GPH LDL size 20.2 nm >20.5 below low normal ----- ----- ----- ----- ----- ----- ----- ----- ----- ----- ----- --- INTER PRETA TIVE INFOR MATIO N PARTI ANGELA LINDA NTRAT ION AND SIZE <--Lo wer CVD Risk Highe r CVD Risk- -> LDL AND HDL PARTI CLES Perce ntile in Refer ence Popul ation HDL-P (tota l) High 75th 50th 25th Low >34.9 34.9 30.5 26.7 <26.7 Small LDL-P Low 25th 50th 75th High <117 117 527 839 >839 LDL Size <-Lar ge (Betzaida connie A)-> <-Sma ll (Betzaida connie B)-> 23.0 20.6 20.5 19.0 ----- ----- ----- ----- ----- ----- ----- ----- ----- ----- ----- --- Small LDL-P and LDL Size are assoc iated with CVD risk, but not after LDL-P is taken into accou nt. Not Available [facility] ([facility]) [address] [place], [address], 05/15/2025 16:08:24 05/06/20 25 05/07/2025 NMR LIPOP ROFIL E+LIP IDS+I R+GPH large VLDL-P 5.2 nmol/ L <=2.7 above high normal Not Available [facility] ([facility]) [address] [facility], [place], [address], 05/15/2025 16:08:24 05/06/20 25 05/07/2025 NMR LIPOP ROFIL E+LIP IDS+I R+GPH small LDL-P 1450 nmol/ L <=527 above high normal Not Available [facility] ([facility]) [address] [place], [address], 05/15/2025 16:08:24 05/06/20 25 05/07/2025 NMR LIPOP ROFIL E+LIP IDS+I R+GPH large HDL-P 3.3 umol/ L >=4.8 below low normal Not Available [facility] ([facility]) [address] [place], [address], 05/15/2025 16:08:24 05/06/20 25 05/07/2025 NMR LIPOP ROFIL E+LIP IDS+I R+GPH VLDL size 52.4 nm <=46.6 above high normal Not Available [facility] ([facility]) [address] [place], [address], 05/15/2025 16:08:24 05/06/20 25 05/07/2025 NMR LIPOP ROFIL E+LIP IDS+I R+GPH LDL size 20.2 nm >=20.8 below low normal Not Available [facility] ([facility]) [address] [place], [address], 05/15/2025 16:08:24 05/06/20 25 05/07/2025 NMR LIPOP ROFIL E+LIP IDS+I R+GPH HDL size 8.8 nm >=9.2 below low normal Not Available [facility] ([facility]) [address] [place], [address], 05/15/2025 16:08:24 05/06/20 25 05/07/2025 NMR LIPOP ROFIL E+LIP IDS+I R+GPH LP-IR score 69 <=45 above high normal ----- ----- ----- ----- ----- ----- ----- ----- ----- ----- ----- --- INSUL IN RESIS TANCE / DIABE JERRY RISK MARKE RS <--In sulin Sensi tive Insul in Resis tant- -> Perce ntile in Refer ence Popul ation Large VLDL- P Low 25th 50th 75th High <0.9 0.9 2.7 6.9 >6.9 Small LDL-P Low 25th 50th 75th High <117 117 527 839 >839 Large HDL-P High 75th 50th 25th Low >7.3 7.3 4.8 3.1 <3.1 VLDL Size Small 25th 50th 75th Large <42.4 42.4 46.6 52.5 >52.5 LDL Size Large 75th 50th 25th Small >21.2 21.2 20.8 20.4 <20.4 HDL Size Large 75th 50th 25th Small >9.6 9.6 9.2 8.9 <8.9 Insul in Resis tance Score LP-IR SCORE Low 25th 50th 75th High <27 27 45 63 >63 _ LP-IR Score is inacc urate if patie nt is non-f astin g. The LP-IR score is a labor atory devel oped index that has been assoc iated with insul in resis tance and diabe jerry risk and shoul d be used as one compo nent of a physi octaviano' s clini estelle asses sment . Not Available [facility] ([facility]) [address] [facility], [place], [address], 05/15/2025 16:08:24 05/06/2005/07/2025 NMR LIPOP ROFIL E+LIP IDS+I R+GPH pdf . Not Available [facility] ([facility]) [address] [facility], [place], [address], 05/15/2025 16:08:24 05/06/20 25 05/06/2025 COMP. METAB OLIC PANEL (14) glucose 100 mg/dL 70-99 above high normal Not Available [facility] ([facility]) [address] [place], [address], 05/15/2025 16:08:25 05/06/20 25 05/06/2025 COMP. METAB OLIC PANEL (14) BUN 8 mg/dL 6-24 normal Not Available [facility] ([facility]) [address] [place], [address], 05/15/2025 16:08:25 05/06/20 25 05/06/2025 COMP. METAB OLIC PANEL (14) creatinine 0.64 mg/dL 0.57-1 .00 normal Not Available [facility] ([facility]) [address] [place], [address], 05/15/2025 16:08:25 05/06/20 25 05/06/2025 COMP. METAB OLIC PANEL (14) eGFR 110 mL/mi n/1.7 3 >59 normal Not Available [facility] ([facility]) [address] [place], [address], 05/15/2025 16:08:25 05/06/20 25 05/06/2025 COMP. METAB OLIC PANEL (14) BUN/creatini ne ratio 13 9-23 normal Not Available [facility] ([facility]) [address] [place], [address], 05/15/2025 16:08:25 05/06/20 25 05/06/2025 COMP. METAB OLIC PANEL (14) sodium 135 mmol/ L 134-14 4 normal Not Available [facility] ([facility]) [address] [place], [address], 05/15/2025 16:08:25 05/06/20 25 05/06/2025 COMP. METAB OLIC PANEL (14) potassium 4.5 mmol/ L 3.5-5. 2 normal Not Available [facility] ([facility]) [address] [place], [address], 05/15/2025 16:08:25 05/06/20 25 05/06/2025 COMP. METAB OLIC PANEL (14) chloride 100 mmol/ L 96-106 normal Not Available [facility] ([facility]) [address] [facility] [place], [address], 05/15/2025 16:08:25 05/06/20 25 05/06/2025 COMP. METAB OLIC PANEL (14) carbon dioxide, total 27 mmol/ L 20-29 normal Not Available [facility] ([facility]) [address] [facility] [place], [address], 05/15/2025 16:08:25 05/06/20 25 05/06/2025 COMP. METAB OLIC PANEL (14) calcium 9.3 mg/dL 8.7-10 .2 normal Not Available [facility] ([facility]) [address] [facility] [place], [address], 05/15/2025 16:08:25 05/06/20 25 05/06/2025 COMP. METAB OLIC PANEL (14) protein, total 7.3 g/dL 6.0-8. 5 normal Not Available [facility] ([facility]) [address] [facility] [place], [address], 05/15/2025 16:08:25 05/06/20 25 05/06/2025 COMP. METAB OLIC PANEL (14) albumin 4.4 g/dL 3.9-4. 9 normal Not Available [facility] ([facility]) [address] [facility] [place], [address], 05/15/2025 16:08:25 05/06/20 25 05/06/2025 COMP. METAB OLIC PANEL (14) globulin, total 2.9 g/dL 1.5-4. 5 Not Available [facility] ([facility]) [address] [place], [address], 05/15/2025 16:08:25 05/06/20 25 05/06/2025 COMP. METAB OLIC PANEL (14) bilirubin, total 0.3 mg/dL 0.0-1. 2 normal Not Available [facility] ([facility]) [address] [place], [address], 05/15/2025 16:08:25 05/06/20 25 05/06/2025 COMP. METAB OLIC PANEL (14) alkaline phosphatase 83 IU/L 41-116 normal Not Available [facility] ([facility]) [address] [place], [address], 05/15/2025 16:08:25 05/06/20 25 05/06/2025 COMP. METAB OLIC PANEL (14) AST (SGOT) 16 IU/L 0-40 normal Not Available [facility] ([facility]) [address] [place], [address], 05/15/2025 16:08:25 05/06/20 25 05/06/2025 COMP. METAB OLIC PANEL (14) ALT (SGPT) 22 IU/L 0-32 normal Not Available [facility] ([facility]) [address] [place], [address], 05/15/2025 16:08:25 05/06/20 25 05/07/2025 CBC, PLATE LET, NO DIFFE RENTI AL WBC 8.3 x10e3 /uL 3.4-10 .8 normal Not Available [facility] ([facility]) [address] [place], [address], 05/15/2025 16:08:25 05/06/20 25 05/07/2025 CBC, PLATE LET, NO DIFFE RENTI AL RBC 4.91 x10e6 /uL 3.77-5 .28 normal Not Available [facility] ([facility]) [address] [place], [address], 05/15/2025 16:08:25 05/06/20 25 05/07/2025 CBC, PLATE LET, NO DIFFE RENTI AL hemoglobin 13.6 g/dL 11.1-1 5.9 normal Not Available [facility] ([facility]) [address] [place], [address], 05/15/2025 16:08:25 05/06/20 25 05/07/2025 CBC, PLATE LET, NO DIFFE RENTI AL hematocrit 42.1 % 34.0-4 6.6 normal Not Available [facility] ([facility]) [address] [place], [address], 05/15/2025 16:08:25 05/06/20 25 05/07/2025 CBC, PLATE LET, NO DIFFE RENTI AL MCV 86 fL 79-97 normal Not Available [facility] ([facility]) [address] [place], [address], 05/15/2025 16:08:25 05/06/20 25 05/07/2025 CBC, PLATE LET, NO DIFFE RENTI AL MCH 27.7 pg 26.6-3 3.0 normal Not Available [facility] ([facility]) [address] [place], [address], 05/15/2025 16:08:25 05/06/20 25 05/07/2025 CBC, PLATE LET, NO DIFFE RENTI AL MCHC 32.3 g/dL 31.5-3 5.7 normal Not Available [facility] ([facility]) [address] [place], [address], 05/15/2025 16:08:25 05/06/20 25 05/07/2025 CBC, PLATE LET, NO DIFFE RENTI AL RDW 12.6 % 11.7-1 5.4 Not Available [facility] ([facility]) [address] [place], [address], 05/15/2025 16:08:25 05/06/20 25 05/07/2025 CBC, PLATE LET, NO DIFFE RENTI AL platelets 273 x10e3 /uL 150-45 0 normal Not Available [facility] ([facility]) [address] [facility], [place], [address], 05/15/2025 16:08:25 05/06/20 25 05/07/2025 CBC, PLATE LET, NO TATO ANGULO AL NRBC RIVETER HAND Not Available [facility] ([facility]) [address] [facility], [place], [address], 05/15/2025 16:08:25 05/06/20 25 05/06/2025 LIPID PANEL WITH LDL/H DL RATIO cholesterol, total 234 mg/dL 100-19 9 above high normal Not Available [facility] ([facility]) [address] [facility], [place], [address], 05/15/2025 16:08:26 05/06/20 25 05/06/2025 LIPID PANEL WITH LDL/H DL RATIO triglyceride s 223 mg/dL 0-149 above high normal Not Available [facility] ([facility]) [address] [facility], [place], [address], 05/15/2025 16:08:26 05/06/20 25 05/06/2025 LIPID PANEL WITH LDL/H DL RATIO HDL cholesterol 45 mg/dL >39 normal Not Available [facility] ([facility]) [address] [place], [address], 05/15/2025 16:08:26 05/06/20 25 05/06/2025 LIPID PANEL WITH LDL/H DL RATIO VLDL cholesterol estelle 41 mg/dL 5-40 above high normal Not Available [facility] ([facility]) [address] [place], [address], 05/15/2025 16:08:26 05/06/20 25 05/06/2025 LIPID PANEL WITH LDL/H DL RATIO LDL chol calc ([facility]) 148 mg/dL 0-99 above high normal Not Available [facility] ([facility]) [address] [place], [address], 05/15/2025 16:08:26 05/06/20 25 05/06/2025 LIPID PANEL WITH LDL/H DL RATIO LDL calc comment: RIVETER HAND Not Available [facility] ([facility]) [address] [facility], [place], [address], 05/15/2025 16:08:26 05/06/20 25 05/06/2025 LIPID PANEL WITH LDL/H DL RATIO LDL/HDL ratio 3.3 ratio 0.0-3. 2 above high normal LDL/H DL Ratio Men Women 1/2 Avg.R isk 1.0 1.5 Avg.R isk 3.6 3.2 2X Avg.R isk 6.2 5.0 3X Avg.R isk 8.0 6.1 Not Available [facility] ([facility]) [address] [facility], [place], [address], 05/15/2025 16:08:26 05/06/20 25 05/15/2025 T4F+T 3FREE thyroxine (T-4), serum 4.8 ug/dL Refer ence Range : Adult s: 4.2 - 13.0 Not Available [facility] [address] [place] [address], [address], 05/15/2025 16:08:26 05/06/20 25 05/15/2025 T4F+T 3FREE free T-3 3.2 pg/mL Refer ence Range : >=20y : 2.0 - 4.4 Not Available [facility] [address] [place] [address], [address], 05/15/2025 16:08:26 05/06/20 25 05/15/2025 T4F+T 3FREE triiodothyro nine (T-3), serum 126 NG/dL Refer ence Range : Adult s: 55 - 170 Not Available [facility] [address] [facility], [place], [address], 05/15/2025 16:08:26 05/06/20 25 05/15/2025 T4F+T 3FREE free thyroxine 0.97 NG/dL Refer ence Range : >=20y : 0.82 - 1.77 Not Available [facility] [address] [place], [address], 05/15/2025 16:08:26 05/06/20 25 05/07/2025 HEMOG LOBIN A1C hemoglobin A1C 6.0 % 4.8-5. 6 above high normal Predi abete s: 5.7 - 6.4 Diabe jerry: >6.4 Glyce margarette contr ol for adult s with diabe jerry: <7.0 Not Available [facility] ([facility]) [address] [place], [address], 05/15/2025 16:08:27 05/06/20 25 05/07/2025 C-PEP TIDE, SERUM C-peptide, serum 3.8 NG/mL 1.1-4. 4 C-Pep tide refer ence inter gonzalo is for fasti ng patie nts. Not Available [facility] ([facility]) [address] [facility], [place], [address], 05/15/2025 16:08:27 05/06/20 25 05/11/2025 REVER SE T3, SERUM reverse T3, serum 11.3 NG/dL 9.2-24 .1 normal Not Available [facility] ([facility]) [address] [facility], [place], [address], 05/15/2025 16:08:28 05/06/20 25 05/07/2025 VITAM IN [...] Endoc rine Socie ty went on to furth er defin e vitam in D insuf ficie ncy as a level betwe en 21 and 29 ng/mL (2). 1. IOM (Inst itute of Medic ine). 2009. Dieta ry refer ence marilee es for calci um and D. Roel mckeon [place]: The [facility] . 2. Martha alford MF, Jackson dimas [place], Stacy off-F errar i CHANEY, et al. Evalu ation , treat ment, and preve ntion of vitam in D defic iency : an Endoc rine Socie ty clini estelle pract ice guide line. JCEM. 2010; 96(7) :1911 -30. Not Available [facility] ([facility]) [address] [place], [address], 05/15/2025 16:08:28 05/06/20 25 05/06/2025 URIC ACID uric acid 4.8 mg/dL 2.6-6. 2 normal Thera peuti c targe t for gout patie nts: <6.0 Not Available [facility] ([facility]) [address] [place], [address], 05/15/2025 16:08:29 05/06/20 25 05/06/2025 THYRO ID ANTIB ODIES thyroid peroxidase (tpo) Ab 12 IU/mL 0-34 normal Not Available [facility] ([facility]) [address] [place], [address], 05/15/2025 16:08:29 05/06/20 25 05/07/2025 THYRO ID ANTIB ODIES thyroglobuli n antibody <1.0 IU/mL 0.0-0. 9 Thyro globu jake Antib santiago measu red by Beckm an Coult er Metho dolog y It shoul d be noted that the prese nce of thyro globu jake antib odies may not be patho genic nor diagn ostic , espec ially at very low level s. The assay mehreen actur er has found that four perce nt of indiv idual s witho ut evide nce of thyro id disea se or autoi mmuni ty will have posit ric TgAb level s up to 4 IU/mL . Not Available [facility] ([facility]) [address] [place], [address], 05/15/2025 16:08:29 05/06/20 25 05/07/2025 INSUL IN insulin 19.5 uIU/m L 2.6-24 .9 normal Not Available [facility] ([facility]) [address] [place], [address], 05/15/2025 16:08:30 05/06/20 25 05/07/2025 APOLI POPRO TEIN A-1 apolipoprote in A-1 164 mg/dL 116-20 9 Not Available [facility] ([facility]) [address] [place], [address], 05/15/2025 16:08:30 05/06/20 25 05/07/2025 APOLI POPRO TEIN B apolipoprote in B 135 mg/dL <90 above high normal Bonny able < 90 Borde rline High 90 - 99 High 100 - 130 Very High >130 ----- ----- ----- ----- ----- ----- ----- ----- ----- ----- ASCVD RISK THERA PEUTI C TARGE T CATEG ORY APO B (mg/d L) Very High Risk <80 (if extre me risk <70) High Risk <90 Moder ate Risk <90 Not Available [facility] ([facility]) [address] [place], [address], 05/15/2025 16:08:30 Result Notes None recorded. Problems Name Problem SNOMED Code Status Onset Date Resolution Date Notes Provider Name and Address Organization Details Recorded Time Obstructive sleep apnea syndrome 48197509 Active 2024 CHRISSIE CLARKE APRN [address], [place], [address], [place] [employer] 5 13:05:57 Obese class II 2881734002316 05 Active 2024 CHRISSIE CLARKE APRN [address], [place], [address], [place], [facility] WE[employer] [facility] TRANSFO 5 13:05:58 Menopause finding 914223252 Active 2024 CHRISSIE CLARKE APRN [address], [place], [address], [place] - [place], MED[facility] WE[facility] LOSS TRANSFO 5 13:06:01 Mixed hyperlipide robbie 456651355 Active 2024 CHRISSIE CLARKE APRN [address], [place], [address], [place], [facility] WE[employer] TRANSFO 5 13:06:03 Generalized anxiety disorder 12266562 Active 2024 CHRISSIE CLARKE APRN [address], [place], [address], [place] - [place], MED[employer] WE[employer] LOSS TRANSFO 5 13:06:05 Prediabetes 949245593 Active 2024 CHRISSIE CLARKE APRN [address], [place], [address], [place], [employer]ANS[employer] 5 11:27:37 Problem Notes None recorded. Medical Equipment None Reported. Allergies Allergen ID Allergen Name Allergen Category Reaction Reaction Severity Criticality Documentation Date Start Date Code Code System Note Provider Name and Address Organization Details Recorded Time 90808 Canis lupus familiari s extract environme nt Not available Not available Not available 05/22/20252022 25853 4 RxNorm Not Available [employer] - External Data Service - prod 03:56:29 44167 house dust allergeni c extract environme nt,medica tion Not available Not available Not available 05/22/20252020 73157 9 RxNorm Not Available [employer]iel - External Data Service - prod 03:56:29 99739 latex environme nt,medica tion rash Not available low 05/22/20252016 53145 91 RxNorm Not Available [employer] External Data Service - prod 03:56:29 Medications [...] t Available Vitals Date Recorded Body height Body mass index (BMI) Body weight Provider Name and Address Organization Details Last Updated DateTime 05/22/2025 149.86 cm 37.5 kg/m2 62536.[address] - [employer], [employer] 05/22/2025 09:10:15 Social History Question Answer Notes LastModified by Organizat ion Details LastModified Time Tobacco Smoking Status Never Smoker CHRISSIE CLARKE, DIAGNOSTICS TECH [address] [facility] [address], [place], [address], [place] - [place], MEDICAL WE[employer] TRANSFO [...] anxious, or unable to sleep at night)? [id number] Information not available 04/22/2025 Family History Relationship [...] ICD10 Code Diagnosis IMO Codes Diagnosis Note [id number] Masood Encinas, DO [facility] on [address] [place] [address] 1 [place] [address] 04/22/2025 11:35:15 04/22/2025 13:05:03 Diet education 82396173 Z71.3 764575 Currently following a unstructur ed meal plan, [...] 23 min Obstructiv e sleep apnea syndrome 00719794 G47.33 481475 ANDIE-untrea kait Plan:- Reinforced importance of nightly use. Advised to get reconnecte d with sleep center to have her equipment evaluated- Discussed necessity of good sleep hygeine; quality sleep supports metabolism , mood, and weight loss success- Emphasized that even modest weight loss can improve ANDIE severity and metabolic health Mixed hyperlipidemia 267 139971 E78.2 76570 No recent lab values on fileezetim roland [...] of lifestyle modificati ons. Obese class II 414172454 1 [address] E66.812 Z68.37 Z71.3 [id number] New ProblemIni tial Weight: 183.9lbsIn itial BMI: 37.1Goal Weight: 140Body Comp: FMP 86.9, SMM 44.2 Plan:- Discussed the health risks associated with excess body weight, such as cardiovasc ular disease and type II diabetes.- Counseled on lifestyle interventi ons for sustainabl e weight loss including increasing protein, reducing refined carbohydra jerry, and daily physical activity- Discussed benefits of food journaling - Addressed sleep hygeine and stress management - Reviewed labs from 03/29/25: glucose 90, creatinine WNL. Plan to order baseline metabolic panel and labs Meds: Plan to discuss pharmacolo gical options pending lab results Referral: N/A Follow Up: In 4 weeks Menopause finding 856732 006 N95.1 [id number] Plan:- Reviewed age-relate d hormonal changes, including [...] during follow ups Generalize d anxiety disorder 65138931 F41.1 740785 Paroxetine 10mg Treatment plan:- Patient reports stability [...] Role of therapist and medication s discussed [id number] EDE LAYTON, JHONY [address] [address] 05/02/2025 09:33:41 05/02/2025 09:54:30 [id number] EDE LAYTON, JHONY [address] [address] 05/22/2025 09:05:45 05/22/2025 09:51:30 Goals Section Goal Description Progress Status Start Date LastModified by Organization Details LastModified Time Weight Loss Goal Weight: 6681505/02/25: Weight status: No weigh in. Patient showed up late to appointment.: Weight status: Current weight: 185.9 Difference: +2 Total: +2 BMI: 37.5 worsening active 2024 Kenny Fairbanks Information not available 05/22/2025 15:46:13 Patient demonstr ates behavior s to improve nutritio nal status will demonstrate improved behaviors r/t ixsjtgryr48/26/ 25: Behaviors: Cravings have been very intense intense lately especially around menstrual cycle. Can't have a lot of bread, can only handle spinach wraps due to diverticulitis and acid reflux. 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 [employer]. - Daily (Weekend) Schedule: Often catching [...] Details LastModified Time Mixed hyperlipidemia Active Chrissie Wan Not Availabl e 04/22/2025 17:07:27 Obese class II Active Chrissie Clarke Not Available 03/28 17:07:27 Payers Encounter Date Sequence Insurance Name Policy Number Policy Adamson Covered Member ID Adamson Member ID Guarantor Name 05/22/2025 1 [place] [facility] [id number] Y [place] Manuel Nation [id number] Notes Date Note Type Note Provider Name and Address Organization Details Recorded Time 05/22/2025 text/html Time spent counselin:21- 9:47Time spent documenting: Visit summary:The patient presents for chronic care management for which they have a plan being monitored for the following conditions which they will have for the next 12 months and represent serious health risks to the patient if the conditions were left untreated: Chronic conditions: 1: Obesity 2: Medical updates: Having a hysterectomy September 19. Weight status: Current weight: 185.9 Difference: +2 Total: +2 BMI: 37.5 Nutrition: Tries to have a chicken cooked at the beginning of the week. 10AM/11AM Breakfast will be boiled eggs, kielbasa. 1/2PM Lunch is chicken and avocado. Dinner will be chicken, rice, and veggies. Will start anti inflammatory protocol and see if this helps with gut inflammation and cravings. Will also start to include a protein shake during the day to see if that helps with cravings. Behaviors: Cravings have been very intense intense lately especially around menstrual cycle. Can't have a lot of bread, can only handle spinach wraps due to diverticulitis and acid reflux. Exercise: Not enough time to exercise, some stretching. Not as active as as she would like to be. A lot of joint pain as well, believes she has arthritis. Sleep: Not great. Not taking trazadone anymore, wasn't helping her sleep. Stress: High stress due to job. 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 CHRISSIE CLARKE, DIAGNOSTICS TECH [address], [place], [address], [place], MEDICAL WEIGHT LOSS TRANSFO 05/22/2025 13:15:35 OBGyn Episode No OBEpisode recorded.
--- OUTSIDE RECORDS SUMMARY | 2025-06-12 18:55 | XMS_ITS ---
Author Name [facility] Organization Unknown Results Test Name/Text Value Interpretation Date Range Source IRON BINDING CAPACITY 333.0 ug/dL 03/29/2025 260 - 490 [facility] IRON SATURATION (%) IN SER/PLAS 29.0 % 03/29/2025 [facility] IRON 95.0 ug/dL 03/29/2025 28 - 170 [facility] FERRITIN 225.0 ng/mL 03/29/2025 6 - 307 [facility] GLOMERULAR FILTRATION RATE ML/MIN/1.73 SQ M.PREDICTED 108.0 mL/min/1.73m*2 03/29/2025 60 - [facility] POTASSIUM 3.8 mmol/L 03/29/2025 3.6 - 5.1 [facility] CALCIUM, TOTAL 9.2 mg/dL 03/29/2025 8.4 - 10.2 [facility] UREA NITROGEN 10.0 mg/dL 03/29/2025 8 - 24 [facility] ANION GAP 10.0 mmol/L 03/29/2025 3 - 11 [facility] GLUCOSE 90.0 mg/dL 03/29/2025 70 - 200 [facility] CREATININE 0.7 mg/dL 03/29/2025 0.6 - 1.2 [facility] CHLORIDE 103.0 mmol/L 03/29/2025 100 - 111 [facility] SODIUM 138.0 mmol/L 03/29/2025 137 - 144 [facility] BICARBONATE 25.0 mmol/L 03/29/2025 23 - 32 [facility] RBC DISTRIBUTION WIDTH 12.6 % 03/29/2025 11.6 - 14.8 [facility] MCH 28.0 pg 03/29/2025 26 - 34 [facility] MCHC 32.1 g/dL 03/29/2025 32 - 36 [facility] HEMATOCRIT 43.9 % 03/29/2025 35 - 47 [facility] HEMOGLOBIN 14.1 g/dL 03/29/2025 12 - 16 [facility] RED CELL COUNT 5.04 10*6/ L 03/29/2025 3.8 - 5.2 [facility] AUTO NRBC % 0.0 % 03/29/2025 0 - 0 [facility] PLATELET COUNT 379.0 10*3/uL 03/29/2025 150 - 440 [facility] WHITE CELL COUNT 12.7 10*3/uL Above high normal 03/29/2025 3 .6 - 11 [facility] MCV 87.1 fL 03/29/2025 80 - 100 [facility] MPV 11.0 fL 03/29/2025 9.4 - 12.4 [facility] NEISSERIA GONORRHOEAE RIBOSOMAL RNA Negative 12/12/2024 - [facility] CHLAMYDIA TRACHOMATIS, NAAT Negative 12/12/2024 - [facility] TRICHOMONAS VAGINALIS RNA Negative 12/12/2024 - [facility] TEJ SPECIES RNA Negative 12/12/2024 - [facility] BACTERIAL VAGINOSIS RNA Positive Abnormal 12/12/2024 - [facility] TEJ GLABRATA RNA Negative 12/12/2024 - [facility] KETONES URINE Negative 12/12/2024 - [facility] SYSMEX CASTS 0-2 12/12/2024 - [facility] RBC 0-2 12/12/2024 0 - 2 [facility] GLUCOSE QUAL Negative 12/12/2024 - [facility] EPITHELIAL CELLS None Seen 12/12/2024 - [facility] HEMOGLOBIN, URINE Negative 12/12/2024 - [facility] UROBILINOGEN, URINE 0.2 EU/dL 12/12/2024 0.2 - 1 [facility] WBC 21-50 Abnormal 12/12/2024 0 - 5 [facility] PH OF URINE 8.5 Abnormal 12/12/2024 5 - 8 [facility] SPECIFIC GRAVITY 1.01 12/12/2024 - [facility] BILIRUBIN, URINE Negative 12/12/2024 - [facility] NITRITE Negative 12/12/2024 - [facility] PROTEIN QUAL Negative 12/12/2024 - [facility] BACTERIA None Seen 12/12/2024 - [facility] LEUKOCYTE ESTERASE Small Abnormal 12/12/2024 - [facility] COLOR OF URINE Yellow 12/12/2024 - [facility] CLARITY OF URINE Clear 12/12/2024 - [facility] TEJ GLABRATA RNA Negative Normal 04/04/2024 - [facility] TRICHOMONAS VAGINALIS RNA Negative Normal 04/04/2024 - [facility] TEJ SPECIES RNA Positive Abnormal 04/04/2024 - [facility] BACTERIAL VAGINOSIS RNA Negative Normal 04/04/2024 - [facility] BACTERIAL VAGINOSIS RNA Negative Normal 01/30/2024 - [facility] TRICHOMONAS VAGINALIS RNA Negative Normal 01/30/2024 - [facility] TEJ GLABRATA RNA Negative Normal 01/30/2024 - [facility] TEJ SPECIES RNA Positive Abnormal 01/30/2024 - [facility] History of Medication Use Medication Directions Dispensed Refills Start Date End Date [facility] miSOPROStoL (CYTOTEC) 200 mcg tablet 3 tablets orally the night before the procedure 01/11/2025 active metroNIDAZOLE (FLAGYL) 500 mg tablet Take 1 tablet (500 mg total) by mouth in the morning and 1 tablet (500 mg total) before bedtime. Do all this for 7 days. 12/13/2024 active nitrofurantoin, macrocrystal-monohydr ate, (MACROBID) 100 mg capsule Take 1 capsule (100 mg total) by mouth in the morning and 1 capsule (100 mg total) before bedtime. Do all this for 5 days. 12/12/2024 active terconazole (TERAZOL 7) 0.4 % vaginal cream 1 applicator-full at bedtime x 2 weeks then 1x/week for 6 months 04/11/2024 active fluconazole (DIFLUCAN) 200 mg tablet Take 1 tablet (200 mg total) by mouth every 72 hours for 7 days. 02/01/2024 02/09/2024 active famotidine (PEPCID) tablet Take 20 mg by mouth. 10/20/2023 active PARoxetine (PAXIL) 10 mg tablet Take 10 mg by mouth in the morning. 10/20/2023 active topiramate (TOPAMAX) 25 mg tablet Take 25 mg by mouth in the morning. 10/26/2021 active traZODone (DESYREL) 50 mg tablet Take 50 mg by mouth nightly. 10/26/2021 active ascorbic acid, vitamin C, (ascorbic acid) 250 mg tablet,chewable Take by mouth. activ e loratadine (Claritin) 5 mg/5 mL syrup active UNABLE TO FIND [place] active vitamin A-ergocalciferol, D2, 1,250-135 unit capsule Vitamin A active Allergies Allergen Reaction Severity Comment Documented Date Source Statu s DOG DANDER 08/25/2022 [facility] active HOUSE DUST 07/17/2020 [facility] active LATEX RASH 02/25/2017 [facility] active Problems Problem Status Onset Date Problem Type Date of Resoluti on Source Dysuria active 2024-12-12 ProblemAct [facility] Endometriosis of peritoneum active 2024-04-11 ProblemAct [facility] Pelvic pain in female active 2024-10-23 ProblemAct [facility] Pelvic pain in female active 2024-10-23 ProblemAct [facility] Encounters Encounter Type Encounter Reason Primary Diagnosis Location Date Ambulatory Pelvic and perineal pain unspecified kirill Pelvic and perineal pain unspecified side [facility] 04/19/2025 Ambulatory Pelvic and perineal pain unspecified kirill Pelvic and perineal pain unspecified side [facility] 03/29/2025 Ambulatory Pelvic and perineal pain unspecified kirill Pelvic and perineal pain unspecified side [facility] 03/29/2025 Ambulatory Abnormal uterine and vaginal bleeding, u Abnormal uterine and vaginal bleeding, unspecified [facility] 02/15/2025 Ambulatory Abnormal uterine and vaginal bleeding, u Abnormal uterine and vaginal bleeding, unspecified [facility] 01/11/2025 Ambulatory Menopausal and femal e climacteric states Menopausal and female climacteric states [facility] 12/13/2024 Ambulatory [facility] 12/12/2024 Ambulatory Pelvic and perineal pain Pelvic and perineal pain [facility] 12/12/2024 Ambulatory [facility] 11/01/2024 Ambulatory Endometriosis of pel sumit peritoneum, unsp Endometriosis of pelvic peritoneum, unspecified [facility] 10/23/2024 Ambulatory [facility] 10/17/2024 Ambulatory Pelvic and perineal pain Pelvic and perineal pain [facility] 04/11/2024 Ambulatory Acute vaginitis Acute vaginitis [facility] Ambulatory Pelvic and perineal pain Pelvic and perineal pain [facility] 01/30/2024 Care Team Organization Name Specialty Phone Email Start Date End Da te [facility] Nayely Lopez Primary Care 04/05/2025 [facility] India Killian Primary Care 11/02/2024 [facility] 4 [facility] PCP Primary Care 01/31/2024 [facility] Malika Branham Primary Care 03/03/2023 02/13/2024 [facility] Darell Navarro Primary Care 05/04/2022 02/13/2024
--- OUTSIDE RECORDS SUMMARY | 2025-06-12 18:55 | XMS_ITS | Data Portability ---
Author Organization [place] [facility] [employer], [employer] Address [address] [place] [address] Care Team Providers Care Director Life Insurance Name Role Phone SRIKANTH GILMORE Primary Care Provider [phone] CHRISSIE BLAS Family Medicine Unavailable Assessment Encounter Date Assessment [...] recorded. Lab lipid panel, serum 2024 025 [facility], [address] [place] [address], [address], 12:59:03 unlisted lab - cardio iq(R) insulin resistance panel with score 2024 [facility], [address], [address], [place], [address], 12:59:02 thyroid panel, serum 2024 [facility], [address], [address], [place], [address], 12:59:00 CMP, serum or plasma 2024 [facility], [address], [address], [place], [address], 16:08:25 CBC 2024 [facility], [address], [address], [place], [address], 16:08:25 HbA1c (hemoglobin A1c), blood 2024 [facility], [address], [address], [place], [address], 16:08:27 TSH, serum or plasma 2024 [facility], [address], [address], [place], [address], 16:08:26 T3, free, serum or plasma 2024 [facility], [address], [address], [place], [address], 12:59:00 T3, reverse, serum 2024 [facility], [address], [address], [place], [address], 16:08:28 uric acid, serum or plasma 2024 [facility], [address], [address], [place], [address], 16:08:29 vitamin D, 25-hydroxy, total, serum 2024 [facility], [address], [address], [place], [address], 16:08:28 T4, free, serum 2024 025 [facility], [address], [address], [place], [address], 12:58:59 Referral None recorded. Procedures None recorded. Surgeries None recorded. Imaging None recorded. Medication Orders None recorded. Patient Targets Encounter Date Encounter Id Patient Goals Patient Target Last Modified By Organization Details Last Modified Time 05/22/2025 [id number] Start Date: 04/22/2025 Initial Weight:183. 9 Initial BMI:37.1 [id number] 3 Not available 05/13/2025 17:56:45 Patient InstructionsNo [...] Very High > 2000 Not Available [facility] ([facility]) [address] [facility], [place], [address], 05/15/2025 16:08:24 05/06/2005/07/2025 NMR LIPOP ROFIL E+LIP IDS+I R+GPH LDL-C (nih calc) 145 mg/dL 0-99 above high normal Optim al < 100 Above optim al 100 - 129 Borde rline 130 - 159 High 160 - 189 Very high > 189 Not Available [facility] ([facility]) [address] [place], [address], 05/15/2025 16:08:24 05/06/20 25 05/07/2025 NMR LIPOP ROFIL E+LIP IDS+I R+GPH HDL-C 48 mg/dL >39 Not Available [facility] ([facility]) [address] [place], [address], 05/15/2025 16:08:24 05/06/20 25 05/07/2025 NMR LIPOP ROFIL E+LIP IDS+I R+GPH triglyceride s 216 mg/dL 0-149 above high normal Not Available [facility] ([facility]) [address] [place], [address], 05/15/2025 16:08:24 05/06/20 25 05/07/2025 NMR LIPOP ROFIL E+LIP IDS+I R+GPH cholesterol, total 232 mg/dL 100-19 9 above high normal Not Available [facility] ([facility]) [address] [place], [address], 05/15/2025 16:08:24 05/06/20 25 05/07/2025 NMR LIPOP ROFIL E+LIP IDS+I R+GPH HDL-P (total) 34.1 umol/ L >=30.5 Not Available [facility] ([facility]) [address] [place], [address], 05/15/2025 16:08:24 05/06/20 25 05/07/2025 NMR LIPOP ROFIL E+LIP IDS+I R+GPH small LDL-P 1450 nmol/ L <=527 above high normal Not Available [facility] ([facility]) [address] [facility], [place], [address], 05/15/2025 16:08:24 05/06/20 25 05/07/2025 NMR LIPOP [...] taken into accou nt. Not Available [facility] ([facility]) [address] [facility], [place], [address], 05/15/2025 16:08:24 05/06/20 25 05/07/2025 NMR LIPOP ROFIL E+LIP IDS+I R+GPH large VLDL-P 5.2 nmol/ L <=2.7 above high normal Not Available [facility] ([facility]) [address] [facility], [place], [address], 05/15/2025 16:08:24 05/06/20 25 05/07/2025 NMR LIPOP ROFIL E+LIP IDS+I R+GPH small LDL-P 1450 nmol/ L <=527 above high normal Not Available [facility] ([facility]) [address] [place], [address], 05/15/2025 16:08:24 05/06/20 25 05/07/2025 NMR LIPOP ROFIL E+LIP IDS+I R+GPH large HDL-P 3.3 umol/ L >=4.8 below low normal Not Available [facility] ([facility]) [address] [place], [address], 05/15/2025 16:08:24 05/06/20 25 05/07/2025 NMR LIPOP ROFIL E+LIP IDS+I R+GPH VLDL size 52.4 nm <=46.6 above high normal Not Available [facility] ([facility]) [address] [place], [address], 05/15/2025 16:08:24 05/06/20 25 05/07/2025 NMR LIPOP ROFIL E+LIP IDS+I R+GPH LDL size 20.2 nm >=20.8 below low normal Not Available [facility] ([facility]) [address] [place], [address], 05/15/2025 16:08:24 05/06/20 25 05/07/2025 NMR LIPOP ROFIL E+LIP IDS+I R+GPH HDL size 8.8 nm >=9.2 below low normal Not Available [facility] ([facility]) [address] [place], [address], 05/15/2025 16:08:24 05/06/20 25 05/07/2025 NMR LIPOP [...] clini estelle asses sment . Not Available [facility] ([facility]) [address] [facility], [place], [address], 05/15/2025 16:08:24 05/06/20 25 05/07/2025 NMR LIPOP ROFIL E+LIP IDS+I R+GPH pdf . Not Available [facility] ([facility]) [address] [facility], [place], [address], 05/15/2025 16:08:24 05/06/20 25 05/06/2025 COMP. METAB OLIC PANEL (14) glucose 100 mg/dL 70-99 above high normal Not Available [facility] ([facility]) [address] [place], [address], 05/15/2025 16:08:25 05/06/20 25 05/06/2025 COMP. METAB OLIC PANEL (14) BUN 8 mg/dL 6-24 normal Not Available [facility] ([facility]) [address] [place], [address], 05/15/2025 16:08:25 05/06/20 25 05/06/2025 COMP. METAB OLIC PANEL (14) creatinine 0.64 mg/dL 0.57-1 .00 normal Not Available [facility] ([facility]) [address] [place], [address], 05/15/2025 16:08:25 05/06/20 25 05/06/2025 COMP. METAB OLIC PANEL (14) eGFR 110 mL/mi n/1.7 3 >59 normal Not Available [facility] ([facility]) [address] [place], [address], 05/15/2025 16:08:25 05/06/20 25 05/06/2025 COMP. METAB OLIC PANEL (14) BUN/creatini ne ratio 13 9-23 normal Not Available [facility] ([facility]) [address] [place], [address], 05/15/2025 16:08:25 05/06/20 25 05/06/2025 COMP. METAB OLIC PANEL (14) sodium 135 mmol/ L 134-14 4 normal Not Available [facility] ([facility]) [address] [place], [address], 05/15/2025 16:08:25 05/06/20 25 05/06/2025 COMP. METAB OLIC PANEL (14) potassium 4.5 mmol/ L 3.5-5. 2 normal Not Available [facility] ([facility]) [address] [place], [address], 05/15/2025 16:08:25 05/06/20 25 05/06/2025 COMP. METAB OLIC PANEL (14) chloride 100 mmol/ L 96-106 normal Not Available [facility] ([facility]) [address] [place], [address], 05/15/2025 16:08:25 05/06/20 25 05/06/2025 COMP. METAB OLIC PANEL (14) carbon dioxide, total 27 mmol/ L 20-29 normal Not Available [facility] ([facility]) [address] [place], [address], 05/15/2025 16:08:25 05/06/20 25 05/06/2025 COMP. METAB OLIC PANEL (14) calcium 9.3 mg/dL 8.7-10 .2 normal Not Available [facility] ([facility]) [address] [place], [address], 05/15/2025 16:08:25 05/06/20 25 05/06/2025 COMP. METAB OLIC PANEL (14) protein, total 7.3 g/dL 6.0-8. 5 normal Not Available [facility] ([facility]) [address] [place], [address], 05/15/2025 16:08:25 05/06/20 25 05/06/2025 COMP. METAB OLIC PANEL (14) albumin 4.4 g/dL 3.9-4. 9 normal Not Available [facility] ([facility]) [address] [place], [address], 05/15/2025 16:08:25 05/06/20 25 05/06/2025 COMP. METAB OLIC PANEL (14) globulin, total 2.9 g/dL 1.5-4. 5 Not Available [facility] ([facility]) [address] [facility] [place], [address], 05/15/2025 16:08:25 05/06/20 25 05/06/2025 COMP. METAB OLIC PANEL (14) bilirubin, total 0.3 mg/dL 0.0-1. 2 normal Not Available [facility] ([facility]) [address] [facility] [place], [address], 05/15/2025 16:08:25 05/06/20 25 05/06/2025 COMP. METAB OLIC PANEL (14) alkaline phosphatase 83 IU/L 41-116 normal Not Available [facility]) [address] [facility], [place], [address], 05/15/2025 16:08:25 05/06/20 25 05/06/2025 COMP. METAB OLIC PANEL (14) AST (SGOT) 16 IU/L 0-40 normal Not Available [facility] ([facility]) [address] [facility] [place], [address], 05/15/2025 16:08:25 05/06/20 25 05/06/2025 COMP. METAB OLIC PANEL (14) ALT (SGPT) 22 IU/L 0-32 normal Not Available [facility] ([facility]) [address] [place], [address], 05/15/2025 16:08:25 05/06/20 25 05/07/2025 CBC, PLATE LET, NO DIFFE RENTI AL WBC 8.3 x10e3 /uL 3.4-10 .8 normal Not Available [facility] ([facility]) [address] [facility], [place], [address], 05/15/2025 16:08:25 05/06/20 25 05/07/2025 CBC, PLATE LET, NO DIFFE RENTI AL RBC 4.91 x10e6 /uL 3.77-5 .28 normal Not Available [facility] ([facility]) [address] [facility], [place], [address], 05/15/2025 16:08:25 05/06/20 25 05/07/2025 CBC, PLATE LET, NO DIFFE RENTI AL hemoglobin 13.6 g/dL 11.1-1 5.9 normal Not Available [facility] ([facility]) [address] [facility], [place], [address], 05/15/2025 16:08:25 05/06/20 25 05/07/2025 CBC, PLATE LET, NO DIFFE RENTI AL hematocrit 42.1 % 34.0-4 6.6 normal Not Available [facility] ([facility]) [address] [facility], [place], [address], 05/15/2025 16:08:25 05/06/20 25 05/07/2025 CBC, PLATE LET, NO DIFFE RENTI AL MCV 86 fL 79-97 normal Not Available [facility] ([facility]) [address] [place], [address], 05/15/2025 16:08:25 05/06/20 25 05/07/2025 CBC, PLATE LET, NO DIFFE RENTI AL MCH 27.7 pg 26.6-3 3.0 normal Not Available [facility] ([facility]) [address] [facility], [place], [address], 05/15/2025 16:08:25 05/06/20 25 05/07/2025 CBC, PLATE LET, NO DIFFE RENTI AL MCHC 32.3 g/dL 31.5-3 5.7 normal Not Available [facility] ([facility]) [address] [facility], [place], [address], 05/15/2025 16:08:25 05/06/20 25 05/07/2025 CBC, PLATE LET, NO DIFFE RENTI AL RDW 12.6 % 11.7-1 5.4 Not Available [facility] ([facility]) [address] [facility], [place], [address], 05/15/2025 16:08:25 05/06/20 25 05/07/2025 CBC, PLATE LET, NO DIFFE RENTI AL platelets 273 x10e3 /uL 150-45 0 normal Not Available [facility] ([facility]) [address] [facility], [place], [address], 05/15/2025 16:08:25 05/06/20 25 05/07/2025 CBC, PLATE LET, NO DIFFE RENTI AL NRBC PLANT MAINTENANCE SUPERVISOR Not Available [facility] ([facility]) [address] [facility], [place], [address], 05/15/2025 16:08:25 05/06/20 25 05/06/2025 LIPID PANEL WITH LDL/H DL RATIO cholesterol, total 234 mg/dL 100-19 9 above high normal Not Available [facility] ([facility]) [address] [facility], [place], [address], 05/15/2025 16:08:26 05/06/20 25 05/06/2025 LIPID PANEL WITH LDL/H DL RATIO triglyceride s 223 mg/dL 0-149 above high normal Not Available [facility] ([facility]) [address] [place], [address], 05/15/2025 16:08:26 05/06/20 25 05/06/2025 LIPID PANEL WITH LDL/H DL RATIO HDL cholesterol 45 mg/dL >39 normal Not Available [facility] ([facility]) [address] [facility], [place], [address], 05/15/2025 16:08:26 05/06/20 25 05/06/2025 LIPID PANEL WITH LDL/H DL RATIO VLDL cholesterol estelle 41 mg/dL 5-40 above high normal Not Available [facility] ([facility]) [address] [place], [address], 05/15/2025 16:08:26 05/06/20 25 05/06/2025 LIPID PANEL WITH LDL/H DL RATIO LDL chol calc ([facility]) 148 mg/dL 0-99 above high normal Not Available [facility] ([facility]) [address] [facility], [place], [address], 05/15/2025 16:08:26 05/06/20 25 05/06/2025 LIPID PANEL WITH LDL/H DL RATIO LDL calc comment: PLANT MAINTENANCE SUPERVISOR Not Available [facility] ([facility]) [address] [facility], [place], [address], 05/15/2025 16:08:26 05/06/20 25 05/06/2025 LIPID PANEL WITH LDL/H DL RATIO LDL/HDL ratio 3.3 ratio 0.0-3. 2 above high normal LDL/H DL Ratio Men Women 1/2 Avg.R isk 1.0 1.5 Avg.R isk 3.6 3.2 2X Avg.R isk 6.2 5.0 3X Avg.R isk 8.0 6.1 Not Available [facility] ([facility]) [address] [facility], [place], [address], 05/15/2025 16:08:26 05/06/20 25 05/15/2025 T4F+T 3FREE thyroxine (T-4), serum 4.8 ug/dL Refer ence Range : Adult s: 4.2 - 13.0 Not Available [facility] [address] [place], [address], 05/15/2025 16:08:26 05/06/20 25 05/15/2025 T4F+T 3FREE free T-3 3.2 pg/mL Refer ence Range : >=20y : 2.0 - 4.4 Not Available [facility] [address] [place], [address], 05/15/2025 16:08:26 05/06/20 25 05/15/2025 T4F+T 3FREE triiodothyro nine (T-3), serum 126 NG/dL Refer ence Range : Adult s: 55 - 170 Not Available [facility] [address] [facility], [place], [address], 05/15/2025 16:08:26 05/06/20 25 05/15/2025 T4F+T 3FREE free thyroxine 0.97 NG/dL Refer ence Range : >=20y : 0.82 - 1.77 Not Available [facility] [address] [facility], [place], [address], 05/15/2025 16:08:26 05/06/20 25 05/07/2025 HEMOG LOBIN A1C hemoglobin A1C 6.0 % 4.8-5. 6 above high normal Predi abete s: 5.7 - 6.4 Diabe jerry: >6.4 Glyce margarette contr ol for adult s with diabe jerry: <7.0 Not Available [facility] ([facility]) [address] [place], [address], 05/15/2025 16:08:27 05/06/20 25 05/07/2025 C-PEP TIDE, SERUM C-peptide, serum 3.8 NG/mL 1.1-4. 4 C-Pep tide refer ence inter gonzalo is for fasti ng patie nts. Not Available [facility] ([facility]) [address] [facility], [place], [address], 05/15/2025 16:08:27 05/06/20 25 05/11/2025 REVER SE T3, SERUM reverse T3, serum 11.3 NG/dL 9.2-24 .1 normal Not Available [facility] ([facility]) [address] [place], [address], 05/15/2025 16:08:28 05/06/20 25 05/07/2025 VITAM IN [...] Endoc rine Socie ty went on to [facility] er defin e vitam in D insuf ficie ncy as a level betwe en 21 and 29 ng/mL (2). 1. IOM (Inst itute of Medic ine). 2010. Dieta ry refer ence intak es for calci um and D. Roel mckeon [place]: [facility] . 2. Martha alford MF, Jackson dimas [place], Stacy off-F qiana i CHANEY, et al. Evalu ation , treat ment, and preve ntion of vitam in D defic iency : an Endoc rine Socie ty clini estelle pract ice guide line. JCEM. 2010; 96(7) :1911 -30. Not Available [facility] ([facility]) [address] [place], [address], 05/15/2025 16:08:28 05/06/20 25 05/06/2025 URIC ACID uric acid 4.8 mg/dL 2.6-6. 2 normal Thera peuti c targe t for gout patie nts: <6.0 Not Available [facility] ([facility]) [address] [place], [address], 05/15/2025 16:08:29 05/06/20 25 05/06/2025 THYRO ID ANTIB ODIES thyroid peroxidase (tpo) Ab 12 IU/mL 0-34 normal Not Available [facility] ([facility]) [address] [place], [address], 05/15/2025 16:08:29 05/06/20 25 05/07/2025 THYRO ID ANTIB ODIES thyroglobuli n antibody <1.0 IU/mL 0.0-0. 9 Thyro globu jake Antib santiago measu red by Eliel Roman er Metho dolog y It shoul d [...] to 4 IU/mL . Not Available [facility] ([facility]) [address] [facility], [place], [address], 05/15/2025 16:08:29 05/06/20 25 05/07/2025 INSUL IN insulin 19.5 uIU/m L 2.6-24 .9 normal Not Available [facility] ([facility]) [address] [place], [address], 05/15/2025 16:08:30 05/06/20 25 05/07/2025 APOLI POPRO TEIN A-1 apolipoprote in A-1 164 mg/dL 116-20 9 Not Available [facility] ([facility]) [address] [facility], [place], [address], 05/15/2025 16:08:30 05/06/20 25 05/07/2025 APOLI POPRO TEIN B apolipoprote in B 135 mg/dL <90 above high normal Bonny able < 90 [place] High 90 - 99 High 100 - 130 Very High >130 ----- ----- ----- ----- ----- ----- ----- ----- ----- ----- ASCVD RISK THERA HANNAH FAIR ORY APO B (mg/d L) Very High Risk <80 (if extre me risk <70) High Risk <90 Moder ate Risk <90 Not Available [facility] ([facility]) [address] [facility], [place], [address], 05/15/2025 16:08:30 Result Notes None recorded. Problems Name Problem SNOMED Code Status Onset Date Resolution Date Notes Provider Name and Address Organization Details Recorded Time Obstructive sleep apnea syndrome 25178308 Active 2024 CHRISSIE BLAS APRN [address], [place], [address], [place] [facility] [employer] [employer] 13:05:57 Obese class II 9346538642109 05 Active 2024 CHRISSIE BLAS APRN [address], [place], [address], [place] [facility] [employer] [employer] 13:05:58 Menopause finding 211157184 Active 2024 CHRISSIE BLAS APRN [address], [place], [address], [place] [facility] [employer] [employer] 13:06:01 Mixed hyperlipide robbie 812978409 Active 2024 CHRISSIE BLAS APRN [address], [place], [address], [place] [facility] [employer] [employer] 13:06:03 Generalized anxiety disorder 75660900 Active 2024 CHRISSIE BLAS APRN [address], [place], [address], [place] [facility] [employer] [employer] 13:06:05 Prediabetes 807531603 Active 2024 CHRISSIE BLAS APRN [address], [place], [address], [place] [facility] [employer] [employer] 11:27:37 Problem Notes None recorded. Medical Equipment None Reported. Allergies Allergen ID Allergen Name Allergen Category Reaction Reaction Severity Criticality Documentation Date Start Date Code Code System Note Provider Name and Address Organization Details Recorded Time 16250 Canis lupus familiari s extract environme nt Not available Not available Not available 05/22/20252022 80574 4 RxNorm Not Available [facility] - External Data Service - prod 03:56:29 61039 house dust allergeni c extract environme nt,medica tion Not available Not available Not available 05/22/20252020 12278 9 RxNorm Not Available [facility] External Data Service - prod 03:56:29 81976 latex environme nt,medica tion rash Not available low 05/22/20252016 21462 91 RxNorm Not Available [facility] External Data Service - prod 03:56:29 Medications [...] cm 91 /min 97 % 37.1 kg/m2 71710.5 5 g 110/62 mm[Hg] Cari Moscoso [facility] [employer] 12:14:02 Date Recorded Body height Body mass index (BMI) Body weight Provider Name and Address Organization Details Last Updated DateTime 05/22/2025 149.86 cm 37.5 kg/m2 25028.[address] [employer] 05/22/2025 09:10:15 Social History Question Answer Notes LastModified by Organizat ion Details LastModified Time Tobacco Smoking Status Never Smoker CHRISSIE BLAS, RECREATION PROGRAM COORDINATOR [address], [place], [address], [place] [employer] [...] anxious, or unable to sleep at night)? [id number] Information not available 04/22/2025 Family History Relationship [...] ICD10 Code Diagnosis IMO Codes Diagnosis Note [id number] Masood Encinas, DO [place] [address] [place] [address] [address] [facility] [address] 04/22/2025 11:35:15 04/22/2025 13:05:03 Diet education 82588330 Z71.3 238693 Currently following a unstructur ed meal plan, [...] 23 min Obstructiv e sleep apnea syndrome 62750509 G47.33 269782 ANDIE-untrea kait Plan:- Reinforced importance of nightly use. Advised to get reconnecte d with sleep center to have her equipment evaluated- Discussed necessity of good sleep hygeine; quality sleep supports metabolism , mood, and weight loss success- Emphasized that even modest weight loss can improve ANDIE severity and metabolic health Mixed hyperlipidemia 267 975575 E78.2 25428 No recent lab values on fileezetim roland [...] of lifestyle modificati ons. Obese class II 057242468 1 71546 E66.812 Z68.37 Z71.3 [id number] New ProblemIni tial Weight: 183.9lbsIn itial BMI: [...] Follow Up: In 4 weeks Menopause finding 572233 006 N95.1 [id number] Plan:- Reviewed age-relate d hormonal changes, including [...] during follow ups Generalize d anxiety disorder 59438030 F41.1 740893 Paroxetine 10mg Treatment plan:- Patient reports stability [...] Role of therapist and medication s discussed [id number] EDE LAYTON, JHONY [address] [address] 05/02/2025 09:33:41 05/02/2025 09:54:30 [id number] EDE LAYTON, JHONY [address] [address] 05/22/2025 09:05:45 05/22/2025 09:51:30 Goals Section Goal Description Progress Status Start Date LastModified by Organization Details LastModified Time Weight Loss Goal Weight: 2257105/02/25: Weight status: No weigh in. Patient showed up late to appointment.: Weight status: Current weight: 185.9 Difference: +2 Total: +2 BMI: 37.5 worsening active 2024 Kenny Fairbanks Information not available 05/22/2025 15:46:13 Patient demonstr ates behavior s to improve nutritio nal status will demonstrate improved behaviors r/t ueerwdmgx78/26/ 25: Behaviors: Cravings have been very intense intense lately especially around menstrual cycle. Can't have a lot of bread, can only handle spinach wraps due to diverticulitis and acid reflux. 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 - Daily (Weekend) Schedule: Often catching [...] Details LastModified Time Mixed hyperlipidemia Active Chrissie Blas Not Availabl e 04/22/2025 17:07:27 Obese class II Active Chrissie Blas Not Available 03/28 17:07:27 Advance Directives Directive None Recorded Payers Insurance Date Sequence Insurance Name Policy Number Policy Adamson Covered Member ID Adamson Member ID Guarantor Name 05/27/2025 1 [facility]: [place] [facility] [id number] Y [place] [id number] [place] Notes Date Note Type Note Provider Name and Address Organization Details Recorded Time 04/22/20 25 text/htm l Overweight/Obese PLANT MAINTENANCE SUPERVISOR-PTReported by PatientHPIFor associated signs & symptoms, patient [...] or bagel or cinnamon cookies (q 2 weeks)u-xspbgjdbgp-ytcka potatoe with olive oil, garlic, onions, pepper, [...] disturbances, + anxiety. has endometriosisRight leg pain-states senior manager asset protection problemDiverticulosisAnxiety-par oxetine. lost daughter in 2017 CHRISSIE BLAS, RECREATION PROGRAM COORDINATOR [address], [place], [address], [place] [employer] [employer] 04/22/2025 13:06:10 05/02/20 25 text/htm l Time spent counselin:15- 9:49Time spent documenting: Visit summary:The patient presents for chronic care management for which they have a plan being monitored for the following conditions which they will have for the next 12 months and represent serious health risks to the patient if the conditions were left untreated: Chronic conditions: 1: Obesity 2: Medical updates: None Weight status: No weigh in. Patient showed up late to appointment. Nutrition:24 hour recall:B: nuts and coffee/ eggs with matthew/ cinnamon cookiesL: usually same as dinnerD: meat with a veggie and riceS: M&Ms Beverages: coffee every morning, carries 64 oz water that she drinks once a day. 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 Will sleep until 10AM. Usually not productive on the weekends.- Cooking Habits: Does most of the cooking, doesn't enjoy, doesn't know what to cook.- Eating out: Once a week.- Home environment/Living Situation:-Exercise: Not a lot of energy.-Eating Style: doesn't do a lot of bread due to acid reflux. Cravings for chocolate.-Past Barriers: can't tolerate a lot of veggies at once, time is an issue. Cant eat anything fried too. Sleep: Doesn't sleep well. Will wake up around 430AM, goes to bed at 10PM. Stress: High stress. Exercise: Pain in hip but still trying to move more. Goals and Motivations - group home: Lose weight and feel better. 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 CHRISSIE BLAS, RECREATION PROGRAM COORDINATOR [address], [place], [address], [place] - POUNDS, MEDICAL WEIGHT LOSS TRANSFO 05/22/2025 13:15:35 OBGyn Episode No OBEpisode recorded.
--- OUTSIDE RECORDS SUMMARY | 2025-06-12 18:55 | XMS_ITS | Patient Health Record ---
Author Organization [facility] Address [address] [place] [address] Care Team Providers Care Client Support Professional Name Role Phone SRIKANTH GILMORE Primary Care Provider [phone] JulessukumarSonal linton Unavailable [phone] Allergies No Known Allergies Results Component Value Reference Range Notes CBC, Platelet, No Differenti [id number] Reviewed date:05/07/2025 09:26:41 AM Interpretation: Performing Lab:[facility], [facility], Phone - [phone], Director - MDJodry Notes/Report: WBC 8.3 3.4-10.8 x10E3/uL RBC 5.00 3.77-5.28 x10E6/uL Hemoglobin 13.8 11.1-15.9 g/dL Hematocrit 43.1 34.0-46.6 % MCV 86 79-97 fL MCH 27.6 26.6-33.0 pg MCHC 32.0 31.5-35.7 g/dL RDW 12.2 11.7-15.4 % Platelets 273 150-450 x10E3/uL Lipid [id number] (Not yet reviewed by provider) Interpretation: Performing Lab:[facility], [facility], [place], Phone - [phone], Director - MDJodry Notes/Report: Cholesterol, Total 225 100-199 mg/dL Triglycerides 216 0-149 mg/dL HDL Cholesterol 43 >39 mg/dL VLDL Cholesterol Rolo 39 5-40 mg/dL LDL Chol Calc (NIH) 143 0-99 mg/dL Lipid [id number] Reviewed date:01/31/2025 08:23:47 AM Interpretation: Performing Lab:[facility], [address] [place] [address], Phone - [phone], Director - Sudarshan Notes/Report: Cholesterol, Total 261 100-199 mg/dL Triglycerides 273 0-149 mg/dL HDL Cholesterol 40 >39 mg/dL VLDL Cholesterol Rolo 52 5-40 mg/dL LDL Chol Calc (NIH) 169 0-99 mg/dL Lipid [id number] Reviewed date:11/06/2024 09:17:05 AM Interpretation: Performing Lab:[facility] [place], [address] [place] [address], Phone - [phone], Director - Sudarshan Notes/Report: Cholesterol, Total 206 100-199 mg/dL Triglycerides 185 0-149 mg/dL HDL Cholesterol 45 >39 mg/dL VLDL Cholesterol Rolo 33 5-40 mg/dL LDL Chol Calc ([facility]) 128 0-99 mg/dL Vitamin D, 46-[id number] Reviewed date:11/06/2024 09:16:56 AM Interpretation: Performing Lab:[facility] [place], [address] [place] [address], Phone - [phone], Director - Sudarshan Notes/Report: Vitamin D, 25-Hydroxy 59.0 30.0-100.0 ng/mL Vitamin D deficiency has been defined by the [place] [employer] and an Endocrine Society practice guideline as a level of serum 25-OH vitamin D less than 20 ng/mL (1,2). The Endocrine Society went on to further define vitamin D insufficiency as a level between 21 and 29 ng/mL (2). 1. IOM ([place] [employer]). 2010. Dietary reference intakes for calcium and D. [place]: The National Academies Press. 2. Varun MF, Deanna NC, José Luis CHANEY, et al. Evaluation, treatment, and prevention of vitamin D deficiency: an Endocrine Society clinical practice guideline. JCEM. 2010; 96(7):1911-30. Reason For Referral Reason Colonoscopy screenin g Please evaluate and treat Diagnosis 1 Encounter for screen ing for malignant neoplasm of colon (Z12.11) Referral Organization [facility] Referring Provider First Name Sonal Referring Provider Last Name James Referred Provider Specialty Gastroentero logy General Notes Please call the van ent to schedule the appointment, Referral has been faxed to [facility]- [phone], Krissy Henrandez 10/04/2024 04:50:09 PM > Referral Priority Routine Reason SEASONAL ALLERGIES Please evaluate and treat Diagnosis 1 Seasonal allergies ( J30.2) Referral Organization [facility] Referring Provider First Name SRIKANTH Referring Provider Last Name DEIRDRE Referring Provider Speciality Internal M edicine Referred Provider Specialty Allergy/Immu nology General Notes Please call the van ent to schedule the appointment, Encounter created and SMS sent to the pt., Krissy Hernandez 02/14/2025 08:09:51 AM > Referral Priority Routine Medications Medication SIG (Take, Route, Frequency, Duration) Notes Start Date End Date Status Topiramate 25 MG 1 tablet Orally Once a day Active Famotidine 20 MG 1 tablet Orally Twic e a day Active PARoxetine HCl 20 MG 1 tablet in the mor jhonathan Orally Once a day; Duration: 30 days 10/02/2024 Active Vitamin E Active Amoxicillin 500 MG 1 capsule Orally florentin ry 8 hrs; Duration: 7 days 04/27/2024 Not-Taki ng Magnesium 200 MG 1 tablet Orally Once a day Active Albuterol Sulfate 108 (90 Base) MCG/ACT 1 puff as needed Inhalation every 4 hrs; Duration: 30 days 05/09/2024 Not-Taking Vitamin D 25 MCG (1000 UT) 1 tablet and 5,000 unit Orally Once a day Active Ezetimibe 10 MG 1 tablet Orally Once a day; Duration: 90 days 01/31/2025 Active Vitamin A Active Lactulose 20 GM/30ML 15 mL as needed Ora lly Once a day; Duration: 30 days 09/14/2023 Not-Taking traZODone HCl 50 MG 1 tablet at bedtime as needed Orally Once a day Not-Taking hydrOXYzine HCl 25 MG 1 tablet as needed Orally every 8 hrs; Duration: 30 days 10/02/2024 Active Claritin Active Benzonatate 100 MG 1 capsule as needed Orally Three times a day; Duration: 21 days 05/09/2024 Not-Takin g PARoxetine HCl 10 MG 1 tablet in the mor jhonathan Orally Once a day Not-Taking Immunizations Vaccine Route Administration Date Status Comme nts COVID Moderna Unknown 09/26/2020 Administered COVID Moderna Unknown 10/24/2020 Administered COVID Moderna Unknown 07/20/2021 Administered Pneumococcal polysaccharide PPV23 Unknown 07/03/2019 Administered TDAP Unknown 01/31/2014 Administered TDAP IM Intramuscular 10/02/2024 Administered Social History Tobacco Use: Social History Observation Description Date Details (start date - stop date) Never Smoker NA - NA Tobacco Use/Smoking Question Answer Notes Are you a nonsmoker Problems Problem Type SNOMED Code ICD Code Onset Dates Problem Status W/U Status Risk Notes Problem Leukocytosis (375305553) Elevated white blood cell count, unspecified (D72.829) Active confirmed Problem 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 Problem Obesity due to excess calories (576399335) Other obesity due to excess calories (E66.09) Active confirmed Problem Mild recurrent major depression (58155619) Major depressive disorder, recurrent, mild (F33.0) Active confirmed Problem Generalized anxiety disorder (80567725) Generalized anxiety disorder (F41.1) Active confirmed Problem Migraine with aura (1710593) Migraine with aura, not intractable, without status migrainosus (G43.109) Active confirmed Problem Gastro-esophageal reflux disease without esophagitis (482519554) Gastro-esophageal reflux disease without esophagitis (K21.9) Active confirmed Problem Constipation (98249843) Constipation, unspecified (K59.00) Active confirmed Problem Mixed hyperlipidemia (891913466) Mixed hyperlipidemia (E78.2) Active confirmed Problem Seasonal allergy (546818405) Seasonal allergies (J30.2) Active confirmed Vital Signs Heart Rate 90 /min 04/23/2025 Temperature 97.1 degrees Fahrenheit 04/23/2025 Blood pressure diastolic 72 mm Hg 04/23/2025 Oximetry 99 % 04/23/2025 Height 4'11'' in 04/23/2025 Blood pressure systolic 116 mm Hg 04/23/2025 Weight 188.5 lbs 04/23/2025 BMI 38.07 kg/m2 04/23/2025 Encounters Encounter Location Date Provider Diagnosis [address] [address] 10/02/2024 Sonal Ramirez Annual visit for general adult medical examination without abnormal findings Z00.00 ; Major depressive disorder, recurrent, mild F33.0 ; Gastro-esophageal reflux disease without esophagitis K21.9 ; Migraine with aura, not intractable, without status migrainosus G43.109 ; Hyperlipidemia, mixed E78.2 ; Fatigue, unspecified type R53.83 ; Other obesity due to excess calories E66.09 ; Encounter for screening for malignant neoplasm of colon Z12.11 ; Encounter for immunization Z23 and Dietary counseling and surveillance Z71.[address] [place] [address] 11/06/2024 Ghadeer Mazloum Generalized anxiety disorder F41.1 and Mixed hyperlipidemia E78.[address] [place] [address] 01/31/2025 Ghadeer Mazloum Generalized anxiety disorder F41.1 and Mixed hyperlipidemia E78.[address] [place] [address] 02/12/2025 SRIKANTH GILMORE Other obesity due to excess calories E66.09 and Dietary counseling and surveillance Z71.[address] [place] [address] 04/23/2025 Ghadeer Mazloum Generalized anxiety disorder F41.1 ; Mixed hyperlipidemia E78.2 and Other specified disorders of white blood cells D72.[address] [address] 02/14/[address] [address] [address] 02/14/[address] [address] 02/08/2025 SRIKANTH GILMORE Assessments Encounter Date Diagnosis (ICD Code) Assessment Notes Treatment Notes Treatment Clinical Notes Section Notes 10/02/2024 Major depressive disorder, recurrent, mild (ICD-10 - F33.0) Ms Gonzales is a 44-year-old lady with migraine, GERD, JORGE LUIS/MDD here annual physical examination. Plan as follows MDD - She is currently on paroxetine at 10 mg. She states that she has been on this medication for quite some time now and this medication has helped her a lot as well with her OCD. Discussed changing this medication given weight gain and the fact that she is trying to lose weight however she does not feel comfortable with that. I will increase Paroxetine to 20 mg and have also Added hydroxyzine 25 mg to the regimen. Possible side effects have been discussed. No SI. Discussed month therapy however she is not able to afford at this point. Discussed lifestyle modification. We will follow up in 4 weeks Insomnia. She is currently on trazodone 50 mg which he states he has been helping and is not interested in increasing the medication as for now as we will do a trial of hydroxyzine. Continue magnesium supplement as well. GERD - Stable at this point. Continue on Famotidine. Migraine - Stable at this point. Continue on topiramate 25 mg Hyperlipidemia - Previous lipid panel was abnormal. At modification discussed. Check lipid panel Fatigue - It is high likely secondary to depression/anxiety . I will still rule out secondary reversible causes. She recently had TSH and CBC and B12 checked and levels were within normal limits. I will check for vitamin D. Obesity - Diet modification has been discussed with increasing exercise intensity, portion control, reduce carb intake and increased protein. The target is to lose 4-6 pounds a month. Screening for colon cancer. Refer patient to GI. She is up-to-date on vaccinations and age-specific screenings. Tdap is given in the office today Mammogram that she gets it done through [facility] on a yearly basis. The breast and pelvic examination are done with gynecology. General concerns have been discussed Screening blood work have been ordered I have rendered the services for this patient under direct supervision of Dr. Gilmore, who did not see the patient but was available upon request 10/02/2024 Annual visit for general adult medical examination without abnormal findings (ICD-10 - Z00.00) Ms Gonzales is a 44-year-old lady with migraine, GERD, JORGE LUIS/MDD here annual physical examination. Plan as follows MDD - She is currently on paroxetine at 10 mg. She states that she has been on this medication for quite some time now and this medication has helped her a lot as well with her OCD. Discussed changing this medication given weight gain and the fact that she is trying to lose weight however she does not feel comfortable with that. I will increase Paroxetine to 20 mg and have also Added hydroxyzine 25 mg to the regimen. Possible side effects have been discussed. No SI. Discussed month therapy however she is not able to afford at this point. Discussed lifestyle modification. We will follow up in 4 weeks Insomnia. She is currently on trazodone 50 mg which he states he has been helping and is not interested in increasing the medication as for now as we will do a trial of hydroxyzine. Continue magnesium supplement as well. GERD - Stable at this point. Continue on Famotidine. Migraine - Stable at this point. Continue on topiramate 25 mg Hyperlipidemia - Previous lipid panel was abnormal. At modification discussed. Check lipid panel Fatigue - It is high likely secondary to depression/anxiety . I will still rule out secondary reversible causes. She recently had TSH and CBC and B12 checked and levels were within normal limits. I will check for vitamin D. Obesity - Diet modification has been discussed with increasing exercise intensity, portion control, reduce carb intake and increased protein. The target is to lose 4-6 pounds a month. Screening for colon cancer. Refer patient to GI. She is up-to-date on vaccinations and age-specific screenings. Tdap is given in the office today Mammogram that she gets it done through [facility] on a yearly basis. The breast and pelvic examination are done with gynecology. General concerns have been discussed Screening blood work have been ordered I have rendered the services for this patient under direct supervision of Dr. Gilmore, who did not see the patient but was available upon request 11/06/2024 Generalized anxiety disorder (ICD-10 - F41.1) Ms Gonzales is a 44-year-old lady with migraine, GERD, JORGE LUIS/MDD here for follow-up on JORGE LUIS. Plan as follows: JORGE LUIS: - Stable at this point. Continue with paroxetine 20mg and hydroxyzine 25mg. HLD: - Diet modification discussed. Advised on reducing cheese/greasy/frie d food intake and increase fiber intake. We will check lipid panel in 6 months Recent Bloodwork has been discussed. General concerns have been addressed I have rendered the services for this patient under direct supervision of Dr. Gilmore, who did not see the patient but was available upon request 01/31/2025 Generalized anxiety disorder (ICD-10 - F41.1) Ms Gonzales is a 44-year-old lady with migraine, GERD, JORGE LIUS/MDD here for follow-up on JORGE LUIS. Plan as follows: JORGE LUIS: - Stable at this point. Continue with paroxetine 20mg and hydroxyzine 25mg. HLD: - The triglyceride is elevated, she has been taking omega supplement. I have added Zetia to the regimen. Side effects discussed. Diet modification discussed. Advised on reducing cheese/greasy/frie d food intake and increase fiber intake. We will check lipid panel in 6 months, If the levels are still elevated then we can consider a low dose statin. Recent Bloodwork has been discussed. General concerns have been addressed I have rendered the services for this patient under direct supervision of Dr. Gilmore, who did not see the patient but was available upon request 02/12/2025 Other obesity due to excess calories (ICD-10 - E66.09) Ms. Cooley is 44 years old lady with generalized anxiety disorder/depressio n, migraine headaches, acid reflux, mixed hyperlipidemia medical weight management. Diet recommendation. Different dietary modalities discussed with the patient. She was advised to restrict her calories to less than 1500 kcal in 24 hours. Portion control recommended. Low glycemic index foods explained and education material given. Information on meal replacement plans. Mediterranean diet, keto diet, low carbohydrate diet explained and discussed with the patient. Patient advised to download applications for calorie counting. Patient was also advised to use [id number] vitamin D3 supplements and multivitamins. Pharmacotherapy. Different medications and their side effects discussed with the patient. Patient will benefit from pharmacotherapy and does not have any contraindications. She is interested in diet Exercise. Patient encouraged to To do regular exercise. Encouraged to do aerobic and anaerobic exercises at least 3-4 days a week. Goal is to burn at least 250-500 in One session Behavioral therapy. Importance of behavioral health and weight management discussed with the patient. CBT and motivational interviewing will benefit the patient. If needed will do a referral to a psychologist/psych iatrist. Bariatric surgery. Different procedures discussed with the patient and she is not a candidate for surgery Screening blood work reviewed Assessed. The patient was assessed and patient does not have any behavioral risk or factors affecting goals of therapy Advised. Patient was given a personalized plan regarding the goals and pros and cons of the treatment Agreed. Collaboratively picked up a treatment plan and patient agreed with the plan Assisted. Patient is assisted in achieving goals. Arrange. Schedule follow-up with the patient to provide ongoing assistance and support and to review the management and treatment plan. Counseling. A total of 40 minutes spent with the patient and more than 50% of time was spent with the patient counseling and educating on different diets, side effects of different medications, pros and cons of medical and surgical weight management, importance of exercise and weight loss and psych intervention for weight loss. 02/12/2025 Dietary counseling and surveillance (ICD-10 - Z71.3) Ms. Cooley is 44 years old lady with generalized anxiety disorder/depressio n, migraine headaches, acid reflux, mixed hyperlipidemia medical weight management. Diet recommendation. Different dietary modalities discussed with the patient. She was advised to restrict her calories to less than 1500 kcal in 24 hours. Portion control recommended. Low glycemic index foods explained and education material given. Information on meal replacement plans. Mediterranean diet, keto diet, low carbohydrate diet explained and discussed with the patient. Patient advised to download applications for calorie counting. Patient was also advised to use [id number] vitamin D3 supplements and multivitamins. Pharmacotherapy. Different medications and their side effects discussed with the patient. Patient will benefit from pharmacotherapy and does not have any contraindications. She is interested in diet Exercise. Patient encouraged to To do regular exercise. Encouraged to do aerobic and anaerobic exercises at least 3-4 days a week. Goal is to burn at least 250-500 in One session Behavioral therapy. Importance of behavioral health and weight management discussed with the patient. CBT and motivational interviewing will benefit the patient. If needed will do a referral to a psychologist/psych iatrist. Bariatric surgery. Different procedures discussed with the patient and she is not a candidate for surgery Screening blood work reviewed Assessed. The patient was assessed and patient does not have any behavioral risk or factors affecting goals of therapy Advised. Patient was given a personalized plan regarding the goals and pros and cons of the treatment Agreed. Collaboratively picked up a treatment plan and patient agreed with the plan Assisted. Patient is assisted in achieving goals. Arrange. Schedule follow-up with the patient to provide ongoing assistance and support and to review the management and treatment plan. Counseling. A total of 40 minutes spent with the patient and more than 50% of time was spent with the patient counseling and educating on different diets, side effects of different medications, pros and cons of medical and surgical weight management, importance of exercise and weight loss and psych intervention for weight loss. 04/23/2025 Generalized anxiety disorder (ICD-10 - F41.1) Ms Gonzales is a 44-year-old lady with migraine, GERD, JORGE LUIS/MDD here for follow-up on Recent blood work. Overall it is nonrevealing with fasting glucose within normal limits, WBC were mildly elevated however she has been experiencing abdominal pain secondary to adenomyosis. She has had comprehensive workup done at the hospital including CT of the abdomen and ultrasound.She does follow up with her yard driver with vaginal ultrasound Revealing nabothian cyst. Plan as follows: JORGE LUIS: - Stable at this point. Continue with paroxetine 20mg and hydroxyzine 25mg. HLD: - The triglyceride is elevated, she has been taking omega supplement. I have added Zetia to the regimen. Side effects discussed. Diet modification discussed. Advised on reducing cheese/greasy/frie d food intake and increase fiber intake. We will check lipid panel in 6 months, If the levels are still elevated then we can consider a low dose statin. Leukocytosis. - This could be secondary to recent inflammatory state. We will repeat WBC in 4 weeks. Recent Bloodwork has been discussed. General concerns have been addressed I have rendered the services for this patient under direct supervision of Dr. Gilmore, who did not see the patient but was available upon request 04/23/2025 Mixed hyperlipidemia (ICD-10 - E78.2) Ms Gonzales is a 44-year-old lady with migraine, GERD, JORGE LUIS/MDD here for follow-up on Recent blood work. Overall it is nonrevealing with fasting glucose within normal limits, WBC were mildly elevated however she has been experiencing abdominal pain secondary to adenomyosis. She has had comprehensive workup done at the hospital including CT of the abdomen and ultrasound.She does follow up with her yard driver with vaginal ultrasound Revealing nabothian cyst. Plan as follows: JORGE LUIS: - Stable at this point. Continue with paroxetine 20mg and hydroxyzine 25mg. HLD: - The triglyceride is elevated, she has been taking omega supplement. I have added Zetia to the regimen. Side effects discussed. Diet modification discussed. Advised on reducing cheese/greasy/frie d food intake and increase fiber intake. We will check lipid panel in 6 months, If the levels are still elevated then we can consider a low dose statin. Leukocytosis. - This could be secondary to recent inflammatory state. We will repeat WBC in 4 weeks. Recent Bloodwork has been discussed. General concerns have been addressed I have rendered the services for this patient under direct supervision of Dr. 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 Overall it is nonrevealing with fasting glucose within normal limits, WBC were mildly elevated however she has been experiencing abdominal pain secondary to adenomyosis. She has had comprehensive workup done at the hospital including CT of the abdomen and ultrasound.She does follow up with her yard driver with vaginal ultrasound Revealing nabothian cyst. Plan as follows: JORGE LUIS: - Stable at this point. Continue with paroxetine 20mg and hydroxyzine 25mg. HLD: - The triglyceride is elevated, she has been taking omega supplement. I have added Zetia to the regimen. Side effects discussed. Diet modification discussed. Advised on reducing cheese/greasy/frie d food intake and increase fiber intake. We will check lipid panel in 6 months, If the levels are still elevated then we can consider a low dose statin. Leukocytosis. - This could be secondary to recent inflammatory state. We will repeat WBC in 4 weeks. Recent Bloodwork has been discussed. General concerns have been addressed I have rendered the services for this patient under direct supervision of Dr. Gilmore, who did not see the patient but was available upon request 01/31/2025 Mixed hyperlipidemia (ICD-10 - E78.2) Ms Gonzales is a 44-year-old lady with migraine, GERD, JORGE LUIS/MDD here for follow-up on JORGE LUIS. Plan as follows: JORGE LUIS: - Stable at this point. Continue with paroxetine 20mg and hydroxyzine 25mg. HLD: - The triglyceride is elevated, she has been taking omega supplement. I have added Zetia to the regimen. Side effects discussed. Diet modification discussed. Advised on reducing cheese/greasy/frie d food intake and increase fiber intake. We will check lipid panel in 6 months, If the levels are still elevated then we can consider a low dose statin. Recent Bloodwork has been discussed. General concerns have been addressed I have rendered the services for this patient under direct supervision of Dr. Gilmore, who did not see the patient but was available upon request 11/06/2024 Mixed hyperlipidemia (ICD-10 - E78.2) Ms Gonzales is a 44-year-old lady with migraine, GERD, JORGE LUIS/MDD here for follow-up on JORGE LUIS. Plan as follows: JORGE LUIS: - Stable at this point. Continue with paroxetine 20mg and hydroxyzine 25mg. HLD: - Diet modification discussed. Advised on reducing cheese/greasy/frie d food intake and increase fiber intake. We will check lipid panel in 6 months Recent Bloodwork has been discussed. General concerns have been addressed I have rendered the services for this patient under direct supervision of Dr. Gilmore, who did not see the patient but was available upon request 10/02/2024 Gastro-esophageal reflux disease without esophagitis (ICD-10 - K21.9) Ms Gonzales is a 44-year-old lady with migraine, GERD, JORGE LUIS/MDD here annual physical examination. Plan as follows MDD - She is currently on paroxetine at 10 mg. She states that she has been on this medication for quite some time now and this medication has helped her a lot as well with her OCD. Discussed changing this medication given weight gain and the fact that she is trying to lose weight however she does not feel comfortable with that. I will increase Paroxetine to 20 mg and have also Added hydroxyzine 25 mg to the regimen. Possible side effects have been discussed. No SI. Discussed month therapy however she is not able to afford at this point. Discussed lifestyle modification. We will follow up in 4 weeks Insomnia. She is currently on trazodone 50 mg which he states he has been helping and is not interested in increasing the medication as for now as we will do a trial of hydroxyzine. Continue magnesium supplement as well. GERD - Stable at this point. Continue on Famotidine. Migraine - Stable at this point. Continue on topiramate 25 mg Hyperlipidemia - Previous lipid panel was abnormal. At modification discussed. Check lipid panel Fatigue - It is high likely secondary to depression/anxiety . I will still rule out secondary reversible causes. She recently had TSH and CBC and B12 checked and levels were within normal limits. I will check for vitamin D. Obesity - Diet modification has been discussed with increasing exercise intensity, portion control, reduce carb intake and increased protein. The target is to lose 4-6 pounds a month. Screening for colon cancer. Refer patient to GI. She is up-to-date on vaccinations and age-specific screenings. Tdap is given in the office today Mammogram that she gets it done through [facility] on a yearly basis. The breast and pelvic examination are done with gynecology. General concerns have been discussed Screening blood work have been ordered I have rendered the services for this patient under direct supervision of Dr. Gilmore, who did not see the patient but was available upon request 10/02/2024 Migraine with aura, not intractable, without status migrainosus (ICD-10 - G43.109) Ms Gonzales is a 44-year-old lady with migraine, GERD, JORGE LUIS/MDD here annual physical examination. Plan as follows MDD - She is currently on paroxetine at 10 mg. She states that she has been on this medication for quite some time now and this medication has helped her a lot as well with her OCD. Discussed changing this medication given weight gain and the fact that she is trying to lose weight however she does not feel comfortable with that. I will increase Paroxetine to 20 mg and have also Added hydroxyzine 25 mg to the regimen. Possible side effects have been discussed. No SI. Discussed month therapy however she is not able to afford at this point. Discussed lifestyle modification. We will follow up in 4 weeks Insomnia. She is currently on trazodone 50 mg which he states he has been helping and is not interested in increasing the medication as for now as we will do a trial of hydroxyzine. Continue magnesium supplement as well. GERD - Stable at this point. Continue on Famotidine. Migraine - Stable at this point. Continue on topiramate 25 mg Hyperlipidemia - Previous lipid panel was abnormal. At modification discussed. Check lipid panel Fatigue - It is high likely secondary to depression/anxiety . I will still rule out secondary reversible causes. She recently had TSH and CBC and B12 checked and levels were within normal limits. I will check for vitamin D. Obesity - Diet modification has been discussed with increasing exercise intensity, portion control, reduce carb intake and increased protein. The target is to lose 4-6 pounds a month. Screening for colon cancer. Refer patient to GI. She is up-to-date on vaccinations and age-specific screenings. Tdap is given in the office today Mammogram that she gets it done through [facility] on a yearly basis. The breast and pelvic examination are done with gynecology. General concerns have been discussed Screening blood work have been ordered I have rendered the services for this patient under direct supervision of Dr. Gilmore, who did not see the patient but was available upon request 10/02/2024 Hyperlipidemia, mixed (ICD-10 - E78.2) Ms Gonzales is a 44-year-old lady with migraine, GERD, JORGE LUIS/MDD here annual physical examination. Plan as follows MDD - She is currently on paroxetine at 10 mg. She states that she has been on this medication for quite some time now and this medication has helped her a lot as well with her OCD. Discussed changing this medication given weight gain and the fact that she is trying to lose weight however she does not feel comfortable with that. I will increase Paroxetine to 20 mg and have also Added hydroxyzine 25 mg to the regimen. Possible side effects have been discussed. No SI. Discussed month therapy however she is not able to afford at this point. Discussed lifestyle modification. We will follow up in 4 weeks Insomnia. She is currently on trazodone 50 mg which he states he has been helping and is not interested in increasing the medication as for now as we will do a trial of hydroxyzine. Continue magnesium supplement as well. GERD - Stable at this point. Continue on Famotidine. Migraine - Stable at this point. Continue on topiramate 25 mg Hyperlipidemia - Previous lipid panel was abnormal. At modification discussed. Check lipid panel Fatigue - It is high likely secondary to depression/anxiety . I will still rule out secondary reversible causes. She recently had TSH and CBC and B12 checked and levels were within normal limits. I will check for vitamin D. Obesity - Diet modification has been discussed with increasing exercise intensity, portion control, reduce carb intake and increased protein. The target is to lose 4-6 pounds a month. Screening for colon cancer. Refer patient to GI. She is up-to-date on vaccinations and age-specific screenings. Tdap is given in the office today Mammogram that she gets it done through [facility] on a yearly basis. The breast and pelvic examination are done with gynecology. General concerns have been discussed Screening blood work have been ordered I have rendered the services for this patient under direct supervision of Dr. Gilmore, who did not see the patient but was available upon request 10/02/2024 Fatigue, unspecified type (ICD-10 - R53.83) Ms Gonzales is a 44-year-old lady with migraine, GERD, JORGE LUIS/MDD here annual physical examination. Plan as follows MDD - She is currently on paroxetine at 10 mg. She states that she has been on this medication for quite some time now and this medication has helped her a lot as well with her OCD. Discussed changing this medication given weight gain and the fact that she is trying to lose weight however she does not feel comfortable with that. I will increase Paroxetine to 20 mg and have also Added hydroxyzine 25 mg to the regimen. Possible side effects have been discussed. No SI. Discussed month therapy however she is not able to afford at this point. Discussed lifestyle modification. We will follow up in 4 weeks Insomnia. She is currently on trazodone 50 mg which he states he has been helping and is not interested in increasing the medication as for now as we will do a trial of hydroxyzine. Continue magnesium supplement as well. GERD - Stable at this point. Continue on Famotidine. Migraine - Stable at this point. Continue on topiramate 25 mg Hyperlipidemia - Previous lipid panel was abnormal. At modification discussed. Check lipid panel Fatigue - It is high likely secondary to depression/anxiety . I will still rule out secondary reversible causes. She recently had TSH and CBC and B12 checked and levels were within normal limits. I will check for vitamin D. Obesity - Diet modification has been discussed with increasing exercise intensity, portion control, reduce carb intake and increased protein. The target is to lose 4-6 pounds a month. Screening for colon cancer. Refer patient to GI. She is up-to-date on vaccinations and age-specific screenings. Tdap is given in the office today Mammogram that she gets it done through [facility] on a yearly basis. The breast and pelvic examination are done with gynecology. General concerns have been discussed Screening blood work have been ordered I have rendered the services for this patient under direct supervision of Dr. Gilmore, who did not see the patient but was available upon request 10/02/2024 Other obesity due to excess calories (ICD-10 - E66.09) Ms Gonzales is a 44-year-old lady with migraine, GERD, JORGE LUIS/MDD here annual physical examination. Plan as follows MDD - She is currently on paroxetine at 10 mg. She states that she has been on this medication for quite some time now and this medication has helped her a lot as well with her OCD. Discussed changing this medication given weight gain and the fact that she is trying to lose weight however she does not feel comfortable with that. I will increase Paroxetine to 20 mg and have also Added hydroxyzine 25 mg to the regimen. Possible side effects have been discussed. No SI. Discussed month therapy however she is not able to afford at this point. Discussed lifestyle modification. We will follow up in 4 weeks Insomnia. She is currently on trazodone 50 mg which he states he has been helping and is not interested in increasing the medication as for now as we will do a trial of hydroxyzine. Continue magnesium supplement as well. GERD - Stable at this point. Continue on Famotidine. Migraine - Stable at this point. Continue on topiramate 25 mg Hyperlipidemia - Previous lipid panel was abnormal. At modification discussed. Check lipid panel Fatigue - It is high likely secondary to depression/anxiety . I will still rule out secondary reversible causes. She recently had TSH and CBC and B12 checked and levels were within normal limits. I will check for vitamin D. Obesity - Diet modification has been discussed with increasing exercise intensity, portion control, reduce carb intake and increased protein. The target is to lose 4-6 pounds a month. Screening for colon cancer. Refer patient to GI. She is up-to-date on vaccinations and age-specific screenings. Tdap is given in the office today Mammogram that she gets it done through [facility] on a yearly basis. The breast and pelvic examination are done with gynecology. General concerns have been discussed Screening blood work have been ordered I have rendered the services for this patient under direct supervision of Dr. Gilmore, who did not see the patient but was available upon request 10/02/2024 Encounter for screening for malignant neoplasm of colon (ICD-10 - Z12.11) Ms Gonzales is a 44-year-old lady with migraine, GERD, JORGE LUIS/MDD here annual physical examination. Plan as follows MDD - She is currently on paroxetine at 10 mg. She states that she has been on this medication for quite some time now and this medication has helped her a lot as well with her OCD. Discussed changing this medication given weight gain and the fact that she is trying to lose weight however she does not feel comfortable with that. I will increase Paroxetine to 20 mg and have also Added hydroxyzine 25 mg to the regimen. Possible side effects have been discussed. No SI. Discussed month therapy however she is not able to afford at this point. Discussed lifestyle modification. We will follow up in 4 weeks Insomnia. She is currently on trazodone 50 mg which he states he has been helping and is not interested in increasing the medication as for now as we will do a trial of hydroxyzine. Continue magnesium supplement as well. GERD - Stable at this point. Continue on Famotidine. Migraine - Stable at this point. Continue on topiramate 25 mg Hyperlipidemia - Previous lipid panel was abnormal. At modification discussed. Check lipid panel Fatigue - It is high likely secondary to depression/anxiety . I will still rule out secondary reversible causes. She recently had TSH and CBC and B12 checked and levels were within normal limits. I will check for vitamin D. Obesity - Diet modification has been discussed with increasing exercise intensity, portion control, reduce carb intake and increased protein. The target is to lose 4-6 pounds a month. Screening for colon cancer. Refer patient to GI. She is up-to-date on vaccinations and age-specific screenings. Tdap is given in the office today Mammogram that she gets it done through [facility] on a yearly basis. The breast and pelvic examination are done with gynecology. General concerns have been discussed Screening blood work have been ordered I have rendered the services for this patient under direct supervision of Dr. Gilmore, who did not see the patient but was available upon request 10/02/2024 Encounter for immunization (ICD-10 - Z23) Ms Gonzales is a 44-year-old lady with migraine, GERD, JORGE LUIS/MDD here annual physical examination. Plan as follows MDD - She is currently on paroxetine at 10 mg. She states that she has been on this medication for quite some time now and this medication has helped her a lot as well with her OCD. Discussed changing this medication given weight gain and the fact that she is trying to lose weight however she does not feel comfortable with that. I will increase Paroxetine to 20 mg and have also Added hydroxyzine 25 mg to the regimen. Possible side effects have been discussed. No SI. Discussed month therapy however she is not able to afford at this point. Discussed lifestyle modification. We will follow up in 4 weeks Insomnia. She is currently on trazodone 50 mg which he states he has been helping and is not interested in increasing the medication as for now as we will do a trial of hydroxyzine. Continue magnesium supplement as well. GERD - Stable at this point. Continue on Famotidine. Migraine - Stable at this point. Continue on topiramate 25 mg Hyperlipidemia - Previous lipid panel was abnormal. At modification discussed. Check lipid panel Fatigue - It is high likely secondary to depression/anxiety . I will still rule out secondary reversible causes. She recently had TSH and CBC and B12 checked and levels were within normal limits. I will check for vitamin D. Obesity - Diet modification has been discussed with increasing exercise intensity, portion control, reduce carb intake and increased protein. The target is to lose 4-6 pounds a month. Screening for colon cancer. Refer patient to GI. She is up-to-date on vaccinations and age-specific screenings. Tdap is given in the office today Mammogram that she gets it done through [facility] on a yearly basis. The breast and pelvic examination are done with gynecology. General concerns have been discussed Screening blood work have been ordered I have rendered the services for this patient under direct supervision of Dr. Gilmore, who did not see the patient but was available upon request 10/02/2024 Dietary counseling and surveillance (ICD-10 - Z71.3) Ms Gonzales is a 44-year-old lady with migraine, GERD, JORGE LUIS/MDD here annual physical examination. Plan as follows MDD - She is currently on paroxetine at 10 mg. She states that she has been on this medication for quite some time now and this medication has helped her a lot as well with her OCD. Discussed changing this medication given weight gain and the fact that she is trying to lose weight however she does not feel comfortable with that. I will increase Paroxetine to 20 mg and have also Added hydroxyzine 25 mg to the regimen. Possible side effects have been discussed. No SI. Discussed month therapy however she is not able to afford at this point. Discussed lifestyle modification. We will follow up in 4 weeks Insomnia. She is currently on trazodone 50 mg which he states he has been helping and is not interested in increasing the medication as for now as we will do a trial of hydroxyzine. Continue magnesium supplement as well. GERD - Stable at this point. Continue on Famotidine. Migraine - Stable at this point. Continue on topiramate 25 mg Hyperlipidemia - Previous lipid panel was abnormal. At modification discussed. Check lipid panel Fatigue - It is high likely secondary to depression/anxiety . I will still rule out secondary reversible causes. She recently had TSH and CBC and B12 checked and levels were within normal limits. I will check for vitamin D. Obesity - Diet modification has been discussed with increasing exercise intensity, portion control, reduce carb intake and increased protein. The target is to lose 4-6 pounds a month. Screening for colon cancer. Refer patient to GI. She is up-to-date on vaccinations and age-specific screenings. Tdap is given in the office today Mammogram that she gets it done through [facility] on a yearly basis. The breast and pelvic examination are done with gynecology. General concerns have been discussed Screening blood work have been ordered I have rendered the services for this patient under direct supervision of Dr. Gilmore, who did not see the patient but was available upon request Plan Of Treatment Pending Test Test Name Order Date Xray: Chest-Standard Frontal & Lat 05/09 [id number] 04/23/2025 CBC/Differential (No Platelet)-[id number] Lipid Panel-[id number] 05/06/2025 Lipid Panel-[id number] 01/31/2025 Next Appt Details Provider Name:Sonal padilla, 08/27/2025 08:30:00 AM, [address] [place] [address], [id number], Insurance Providers Payer Name Payer Address Payer Phone Subscriber Number Group Number Insured Name Patient Relationship to Insured Coverage Start Date Coverage End Date [facility] [address] [place] [id number] James Boyd Self - patient is the insured Medical (General) History Medical History History ICD Code GERD JORGE LUIS/MDD Migraine Surgical History Surgery Date(Month/Year) x 1 tubal ligation ablation surgery
--- OUTSIDE RECORDS SUMMARY | 2025-06-12 18:55 | XMS_ITS | Continuity of Care Document ---
Author Organization [place] [facility], [place] Address [address] [place] [address] Care Team Providers Care Paper Cone Grader Name Role Phone SRIKANTH GILMORE Primary Care Provider [phone] CHRISSIE CLARKE Family Medicine Unavailable Assessment No assessment recorded. Plan of Treatment Reminders Order Date Submit Date Provider Last Modified By Organization Details Last Modified Time Details Appointments None record ed. Lab None record ed. Referral None record ed. Procedures None record ed. Surgeries None record ed. Imaging None record ed. Medication Orders None record ed. Patient TargetsNo targets recorded. Patient InstructionsNo instructions recorded. Reason for Referral None Reported. Problems Name Problem SNOMED Code Status Onset Date Resolution Date Notes Provider Name and Address Organization Details Recorded Time Obstructive sleep apnea syndrome 21897098 Active 2024 CHRISSIE CLARKE, NATALIO [address], [place], [address], [place] [facility] 13:05:57 Obese class II 7510488814611 05 Active 2024 CHRISSIE CLARKE, NATALIO [address], [place], [address], [place] [facility] 13:05:58 Menopause finding 831725028 Active 2024 CHRISSIE CLARKE APRN [address], [place], [address], [place] [facility] 13:06:01 Mixed hyperlipide robbie 818375902 Active 2024 CHRISSIE CLARKE, SEO MANAGER [address], [place], [address], [place] [facility] 5 13:06:03 Generalized anxiety disorder 56805469 Active 2024 CHRISSIE CLARKE, SEO MANAGER [address], [place], [address], [place] [facility] 5 13:06:05 Prediabetes 724847991 Active 2024 CHRISSIE CLARKE, SEO MANAGER [address], [place], [address], [place] [facility] 5 11:27:37 Problem Notes None recorded. Medical Equipment None Reported. Allergies Allergen ID Allergen Name Allergen Category Reaction Reaction Severity Criticality Documentation Date Start Date Code Code System Note Provider Name and Address Organization Details Recorded Time 65814 Canis lupus familiari s extract environme nt Not available Not available Not available 05/22/20252022 33774 4 RxNorm Not Available [employer] - prod 5 03:56:29 96066 house dust allergeni c extract environme nt,medica tion Not available Not available Not available 05/22/20252020 51670 9 RxNorm Not Available [employer] - prod 5 03:56:29 74475 latex environme nt,medica tion rash Not available low 05/22/20252016 56305 91 RxNorm Not Available [employer] - prod 5 03:56:29 Medications Name Sig Start Date Stop [...] Updated DateTime 05/22/2025 149.86 cm 37.5 kg/m2 36498.[address] [facility] 05/22/2025 09:10:15 Social History Question Answer Notes LastModified by [employer] Details LastModified Time Tobacco Smoking Status Never Smoker CHRISSIE CLARKE, SEO MANAGER [address], [place], [address], [place] [facility] [...] Functional Status Question Answer Note LastModified by [employer] Details LastModified Time How many times per week do you consume alcohol? Less than 1 time per week Information not available 04/22/2025 What is your level of alcohol consumption? Occasional Information not available 04/22/2025 Mental Status Question Answer Note LastModified by Organization D [employer] LastModified Time Do you feel stressed (tense, restless, nervous, or anxious, or unable to sleep at night)? [id number] Information not available 04/22/2025 Family History Relationship [...] ICD10 Code Diagnosis IMO Codes Diagnosis Note [id number] Masood Encinas, DO [facility] [address] [place] [address],[facility] [address] [facility] [address] 04/22/2025 11:35:15 04/22/2025 13:05:03 Diet education 46493028 Z71.3 548376 Currently following a unstructur ed meal plan, [...] 23 min Obstructiv e sleep apnea syndrome 44558476 G47.33 594294 ANDIE-untrea kait Plan:- Reinforced importance of nightly use. Advised to get reconnecte d with sleep center to have her equipment evaluated- Discussed necessity of good sleep hygeine; quality sleep supports metabolism , mood, and weight loss success- Emphasized that even modest weight loss can improve ANDIE severity and metabolic health Mixed hyperlipidemia 267 423657 E78.2 79322 No recent lab values on fileezetim roland [...] of lifestyle modificati ons. Obese class II 753798014 1 67117 E66.812 Z68.37 Z71.3 [id number] New ProblemIni tial Weight: 183.9lbsIn itial BMI: [...] Follow Up: In 4 weeks Menopause finding 735907 006 N95.1 [id number] Plan:- Reviewed age-relate d hormonal changes, including [...] during follow ups Generalize d anxiety disorder 52786910 F41.1 023061 Paroxetine 10mg Treatment plan:- Patient reports stability [...] Role of therapist and medication s discussed [id number] RENE ANDRES, WIRE FENCE BUILDER, CDN [address] [address] 05/02/2025 09:33:41 05/02/2025 09:54:30 Goals Section Goal Description Progress Status Start Date LastModified by Organization Details LastModified Time Weight Loss Goal Weight: 63096: Weight status: No weigh in. Patient showed up late to appointment.: Weight status: Current weight: 185.9 Difference: +2 Total: +2 BMI: 37.5 worsening active 2024 Rene Andres Information not available 05/22/2025 15:46:13 Patient demonstr ates behavior s to improve nutritio nal status will demonstrate improved behaviors r/t /26/ 25: Behaviors: Cravings have been very intense intense lately especially around menstrual cycle. Can't have a lot of bread, can only handle spinach wraps due to diverticulitis and acid reflux. 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 - Daily () Schedule: Often catching up on work and [...] eat anything fried too. worsening active 2024 Rene Andres Information not available 05/22/2025 15:46:55 Health Concerns Section Related Observation LastModified by Organization Detai ls LastModified Time None Recorded Concern Status LastModified by Organization Details LastModified Time Mixed hyperlipidemia Active Chrissie Wan Not Availabl e 04/22/2025 17:07:27 Obese class II Active Chrissie Elianaelli Not Available 03/28 17:07:27 Payers Encounter Date Sequence Insurance Name Policy Number Policy Adamson Covered Member ID Adamson Member ID Guarantor Name 05/02/2025 1 [place]: FRANCISCO MEAD [id number] Y [place] [employer] [place] [id number] [place] Notes Date Note Type Note Provider Name and Address Organization Details Recorded Time 05/02/2025 text/html Time spent counselin:15- 9:49Time spent documenting: Visit [...] brussel sprouts, onions Behaviors:Lifestyle Factors - Daily () 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 Goals and Motivations - dredge master: Lose weight and feel better. 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 CHRISSIE CLARKE, SEO MANAGER [address], [place], [address], [place] [facility] 05/22/2025 13:15:35 OBGyn Episode No OBEpisode recorded.
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
== END 2025-06-12 14:54 | disposition home or self-care (01) ==
LOC: HO.HSM 14:08
PROVIDERS: PCP Hospitalist; Visit Provider Registered Nurse
DX: G43.009 Migraine without aura, not intractable, without status migrainosus (principal); F41.9 Anxiety disorder, unspecified; G47.00 Insomnia, unspecified
CPT/HCPCS: 99214